=== PATIENT | female | born 1960 | race Caucasian/White ===

== ENCOUNTER 2017-01-11 04:06 | Inpatient (IN) | payer OTHER ==
[~2017-01-11] VITALS: Ht 157.5 cm; Wt 56.8 kg
[~2017-01-11 04:06] MED LIST: HYDR-971 PO; PROAIR HFA8.5 GM INH
--- NOTE | 2017-01-11 04:39 | PHYS DOC ---
Past Medical History Past Medical History: Arthritis, Asthma Additional Past Medical Histor: RA,chrones,osteoporosis, hep c+ Past Surgical History: Other Additional Past Surgical Histo: 17 x bowel resection. Alcohol Use: Occasionally Drug Use: None Adult General Chief Complaint Chief Complaint: SHORTNESS OF BREATH HPI HPI Patient is a 56 year old female who presents with chest pain and shortness of breath. Patient reports for the past 5 days she has been having cold-like symptoms, including cough, body aches, runny nose. Tonight approximately 0030 she had acute onset of "squeezing" discomfort in her left chest that is accompanied by shortness of breath. She also reports her left upper extremity is numb. No clear inciting or mitigating factors. She tried an albuterol treatment with no improvement. She did not take anything else for symptoms. Of note, patient says she has an allergy to aspirin. Review of Systems Review of Systems Constitutional: Denies fever or chills Eyes: Denies change in visual acuity or eye pain HENT: Rhinorrhea. Denies sore throat Respiratory: Shortness of breath, cough Cardiovascular: L chest pain GI: Nausea. Denies abdominal pain, vomiting, bloody stools or diarrhea : Denies dysuria or hematuria Musculoskeletal: Body aches Integument: Denies rash or skin lesions Neurologic: Denies headache, focal weakness Current Medications Current Medications Current Medications Medications (Trade) Dose Ordered Sig/Nidhi Start Time Stop Time Status Last Admin Dose Admin Acetaminophen (Tylenol) 650 mg PRN Q4HRS PRN 01/11/17 06:30 01/12/17 06:29 Acetaminophen/ Hydrocodone Bitart (Lortab 5/325) 2 tab 1X ONCE 01/11/17 05:15 01/11/17 05:16 DC 01/11/17 05:10 2 TAB Diphenhydramine HCl (Benadryl) 25 mg 1X ONCE 01/11/17 05:15 01/11/17 05:16 DC 01/11/17 05:10 25 MG Morphine Sulfate 2 mg PRN Q2HR PRN 01/11/17 06:30 01/12/17 06:29 01/11/17 06:37 2 MG Nitroglycerin (Nitrostat) 0.4 mg PRN Q5MIN PRN 01/11/17 06:30 01/12/17 06:29 Ondansetron HCl (Zofran) 4 mg PRN Q8HRS PRN 01/11/17 06:30 01/12/17 06:29 Allergies Allergies Allergies Coded Allergies Type Severity Reaction Last Updated Verified butorphanol Allergy Severe anaphalaxis 11/13/16 Yes meperidine Allergy Intermediate rash 11/13/16 Yes propoxyphene Allergy Intermediate hives 11/13/16 Yes aspirin Allergy Unknown rash 11/13/16 Yes Physical Exam Physical Exam Constitutional: Well developed, well nourished, no acute distress, non-toxic appearance HENT: Normocephalic, atraumatic, bilateral external ears normal Eyes: EOMI, conjunctiva normal, no discharge Neck: Normal range of motion, no stridor Cardiovascular: Heart rate normal, regular rhythm, no murmur Lungs & Thorax: Bilateral breath sounds clear to auscultation Abdomen: Bowel sounds normal, soft, non-distended, no TTP Skin: Warm, dry, no erythema, no rash Extremities: No obvious deformity, no edema Neurologic: Alert and oriented X 3, no gross deficits noted Psychologic: Anxious Current Patient Data Vital Signs Vital Signs Date Time Temp Pulse Resp B/P Pulse Ox O2 Delivery O2 Flow Rate FiO2 01/11/17 06:45 84 132/65 96 Room Air 01/11/17 04:08 97.7 20 97.7 Lab Values Laboratory Tests Test 01/11/17 05:15 White Blood Count 5.1x10^3/uL (4.0-11.0) Red Blood Count 3.64x10^6/uL (3.50-5.40) Hemoglobin 10.8g/dL (12.0-15.5) L Hematocrit 33.8% (36.0-47.0) L Mean Corpuscular Volume 93fL (79-100) Mean Corpuscular Hemoglobin 30pg (25-35) Mean Corpuscular Hemoglobin Concent 32g/dL (31-37) Red Cell Distribution Width 14.2% (11.5-14.5) Platelet Count 165x10^3/uL (140-400) Neutrophils (%) (Auto) 65% (31-73) Lymphocytes (%) (Auto) 24% (24-48) Monocytes (%) (Auto) 8% (0-9) Eosinophils (%) (Auto) 2% (0-3) Basophils (%) (Auto) 1% (0-3) Neutrophils # (Auto) 3.3x10^3uL (1.8-7.7) Lymphocytes # (Auto) 1.2x10^3/uL (1.0-4.8) Monocytes # (Auto) 0.4x10^3/uL (0.0-1.1) Eosinophils # (Auto) 0.1x10^3/uL (0.0-0.7) Basophils # (Auto) 0.0x10^3/uL (0.0-0.2) Sodium Level 143mmol/L (136-145) Potassium Level 3.8mmol/L (3.5-5.1) Chloride Level 106mmol/L (98-107) Carbon Dioxide Level 27mmol/L (21-32) Anion Gap 10 (6-14) Blood Urea Nitrogen 15mg/dL (7-20) Creatinine 0.6mg/dL (0.6-1.0) Estimated GFR (Cockcroft-Gault) 103.8 Glucose Level 104mg/dL (70-99) H Calcium Level 8.0mg/dL (8.5-10.1) L Troponin I Quantitative < 0.017ng/mL (0.000-0.055) Influenza Type A Antigen Negative (NEGATIVE) Influenza Type B Antigen Negative (NEGATIVE) Laboratory Tests 01/11/17 05:15 Laboratory Tests 01/11/17 05:15 EKG EKG EKG (my read): sinus rhythm, rate 79, normal axis, intervals wnl, nonspecific ST changes Radiology/Procedures Radiology/Procedures CXR (my read): No acute abnormality Course & Med Decision Making Course & Med Decision Making Pertinent Labs and Imaging studies reviewed. (See chart for details) Patient is 56-year-old female who presents with chest discomfort and shortness of breath. Suspect that she has had viral upper respiratory infection, unsure if this is related to acute onset chest discomfort or shortness of breath. In any case must consider ACS. Will obtain EKG, chest x-ray, labs to evaluate. An allergic to aspirin, so will not give that. Oral pain meds ordered, in addition to Zofran and Benadryl (benadryl per patient request as pain meds make her itchy ). EKG and chest x-ray results as above. Labs unremarkable; troponin within normal limits, however given timeframe this is not sufficient to rule out OH. Discussed results with patient, who continues to have chest discomfort and shortness of breath. Discussed with Dr. Gordon, will admit under her care for further evaluation and treatment. Dragon Disclaimer Dragon Disclaimer This electronic medical record was generated, in whole or in part, using a voice recognition dictation system. Departure Departure Impression: Primary Impression: Chest pain Additional Impression: SOB (shortness of breath) Disposition: ADMITTED INPATIENT Condition: STABLE Referrals: UNKNOWN PCP NAME (PCP) Problem Qualifiers TADEO ULLOA MD Jan 11, 2017 04:39
[2017-01-11] MEDS ORDERED: DIPHENHYDRAMINE HCL 25 MG CAPSULE PO ONE (05:15)
[2017-01-11] MEDS ORDERED: ONDANSETRON PF 4 MG/2 ML VIAL. IV ONE (05:15)
[2017-01-11] MEDS ORDERED: HYDROCODONE/APAP 5/325MG TABLET. PO ONE (05:15)
[2017-01-11 05:46] LABS: BASO % 1 % (0-3); EOS % 2 % (0-3); HEMATOCRIT 33.8 % (36.0-47.0); HEMOGLOBIN 10.8 g/dL (12.0-15.5); LYMPH # 1.2 x10^3/uL (1.0-4.8); LYMPH % 24 % (24-48); MEAN CORPUSCULAR HEMOGLOBIN 30 pg (25-35); MEAN CORPUSCULAR HGB CONC 32 g/dL (31-37); MEAN CORPUSCULAR VOLUME 93 fL (79-100); MONO % 8 % (0-9); NEUT % 65 % (31-73); OBC FLU VALID; PLATELET COUNT 165 x10^3/uL (140-400); RED BLOOD COUNT 3.64 x10^6/uL (3.50-5.40); RED CELL DISTRIBUTION WIDTH 14.2 % (11.5-14.5); WHITE BLOOD COUNT 5.1 x10^3/uL (4.0-11.0)
[2017-01-11 05:49] LABS: CREATININE 0.6 mg/dL (0.6-1.0); GFR 103.8; POTASSIUM 3.8 mmol/L (3.5-5.1)
[2017-01-11] MEDS ORDERED: MORPHINE SULFATE 2 MG/ML DISP.SYRIN. IV PRN (06:30)
[2017-01-11] MEDS ORDERED: ONDANSETRON PF 4 MG/2 ML VIAL. IV PRN (06:30)
[2017-01-11] MEDS ORDERED: ACETAMINOPHEN 325 MG TABLET. PO PRN (06:30)
[2017-01-11] MEDS ORDERED: NITROGLYCERIN SUBLINGUAL 0.4 MG BOTTLE OF 25. SL PRN (06:30)
--- NOTE | 2017-01-11 06:45 | EKG ---
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
--- NOTE | 2017-01-11 07:24 | RAD ---
Chest, 2 views, 01/11/2017: History: Chest pain, cough, shortness of breath The heart size and pulmonary vascularity are normal. No pulmonary infiltrates are seen. There is no evidence of pleural fluid. IMPRESSION: No acute cardiopulmonary abnormality is detected.
--- NOTE | 2017-01-11 07:49 | ACF ---
Admit Criteria Forms Admit Criteria Forms Admit Criteria Forms CARDIOLOGY GRG Clinical Indications for Admission to Inpatient Care ( Place 'X' for any and all applicable criteria): Hospital admission is needed for appropriate care of the patient because of ANY ONE of the following (1): [ ] I. Hemodynamic instability as indicated by ALL of the following (1)(2)(3) (4)(5) [ ]a) Vital signs or other findings not as expected for chronic patient condition or baseline [ ]b) Instability indicated by ANY ONE of the following: [ ]i) Hypotension [ ]ii) Symptomatic Tachycardia unresponsive to treatment ( e.g., analgesia, fluids, sedation as indicated) [ ]iii) Inadequate perfusion indicated by ANY ONE of the following: [ ] 1) Lactic acidosis (> 2 mmol/L) [ ] 2) New abnormal capillary refill (> 3 seconds) [ ] 3) Reduced urine output [ ] 4) New altered mental status [ ]iv) Orthostatic vital sign changes unresponsive to treatment (e.g., fluids) [ ]v) IV inotropic or vasopressor medication required to maintain adequate blood pressure or perfusion [ ] II. Severe heart failure as indicated by ANY ONE of the following(17)(18) [ ]a) Respiratory distress [ ]b) Hypotension [ ]c) Anasarca (refractory to outpatient therapy) [ ]d) Cardiac arrhythmias of immediate concern [ ]e) Myocardial ischemia [ ] III. Cardiac arrhythmias or findings of immediate concern indicated by ANY ONE of the following (19)(20): [ ] a) Heart rhythms that are inherently dangerous or unstable indicated by ANY ONE of the following (21)(22)(23): [ ] i) Resuscitated ventricular fibrillation or cardiac arrest [ ] ii) Ventricular escape rhythm [ ] iii) Sustained ventricular tachycardia (30 seconds or more of ventricular rhythm at greater than 100 beats per minute) [ ] iv) Nonsustained ventricular tachycardia and ANY ONE of the following: [ ] 1) Suspected cardiac ischemia as cause or consequence of ventricular tachycardia [ ] 2) In setting of acute myocarditis [ ] b) Unstable cardiac conduction defects indicated by ANY ONE of the following(23)(24)(25) [ ] i) Type II second-degree atrioventricular block [ ]ii) Third-degree atrioventricular block [ ]iii) New-onset left bundle branch block with suspected myocardial ischemia [ ]c) Any heart rhythm and ANY ONE of the following (21)(22)(26)(27) (28) [ ] i) Continuous long-term ECG monitoring needed (e.g., initiation of drug requiring monitoring for more than 24 hours) [ ] ii) Patient has automatic implanted cardioverter defibrillator that is repeatedly firing, malfunctioning, or in need of immediate adjustment of settings beyond the scope of ambulatory or observation care [ ]d) Heart rhythms of concern due to ANY ONE of the following: [ ] i) Hypotension [ ] ii) Respiratory distress [ ] iii) Association with other significant symptoms (e.g., bradycardia with syncope or ongoing dizziness, supraventricular tachycardia with chest pain (14)(15)(17) [ ] IV. Monitoring for cardiac contusion beyond the scope of observation care needed [A](30)(31)(32) [ ] V. Surgical or device complication (e.g., valve replacement complication , pacemaker dysfunction) (35)(41)(44)(45)(46) [ ] . Inpatient palliative care needed. [B](49) Also use Inpatient Palliative Care Criteria [ ] VII. Nonbacterial thrombotic (marantic) endocarditis (36)(43)(47)(48) [X] VIII. Cardiology condition, symptom, or finding for which emergency and observation care has failed or are not considered appropriate. [ ] IX. Acute valvular disease requiring inpatient as indicated by ANY ONE of the following (41) [ ]a) Acute valvular regurgitation (42) [ ]b) Noninfectious valvulitis (43) [ ]c) Obstructive valve thrombosis [ ]d) Paravalvular leak [ ]e) Other significant valvular disorder remaining after emergency or observation level of care (as appropriate) [ ]X. Pericardial disease requiring inpatient treatment as indicated by ANY ONE of the following (33)(34)(35)(36)(37) [ ]a) Suspected tamponade (38)(39)(40) [ ]b) Hemopericardium [ ]c) Other significant pericardial disorder remaining after emergency or observation level of care (as appropriate) [ ] XI. Cardiac ischemia beyond scope of emergency and observation care. [ ] XII. Hypertension requiring inpatient treatment as indicated by ANY ONE of the following (6)(7)(8) [ ]a) SBP greater than 220 mm Hg or DBP greater than 120 mmHg despite treatment [ ]b) SBP greater than 140 mm Hg or DBP greater than 100 mm Hg with evidence of acute end organ damage as indicated by ANY ONE of the following [ ] i) Encephalopathy [ ] ii) Acute renal failure as indicated by new onset of ANY ONE of the following (9)(10)(11)(12)(13) [ ]1) 3-fold rise in serum creatinine from baseline [ ]2) Serum creatinine greater than 4 mg/dL ( 354 micromoles/L) with acute rise greater than 0.5 mg/dL (44.2 micromoles/L) [ ]3) Reduction of more than 75% in estimated glomerular filtration rate from baseline [ ]4) Estimated glomerular filtration rate less than 35 mL/min/1.73m2 (0.59 mL/sec/1.73m2) in child up to 18 years of age [ ]5) Cessation of urine output indicated by ALL of the following [ ]A. Adequate volume status [ ]B. Inadequate urine output as indicated by ANY ONE of the following [ ]a. Urine output less than 0.3 mL/kg/hr for 24 hours [ ]b. Anuria (urine output less than 0.1 mL/kg/hr) for 12 hours [ ] iii) Aortic dissection [ ] iv) Myocardial Ischemia [ ] v) Left ventricular heart failure [ ]vi) Retinal Hemorrhage [ ]vii) Other significant finding [ ]c) Hypertension in child requiring inpatient treatment as indicated by ALL of the following(14)(15)(16) [ ] i) Outpatient treatment not effective, not available, or not appropriate [ ]ii) SBP or DBP greater than 95th percentile for age [ ]iii) Evidence of acute end organ damage as indicated by ANY ONE of the following [ ]1) Altered mental status [ ]2) Acute renal failure as indicated by new onset of ANY ONE of the following(9)(10)(11)(12)(13) [ ]A. 3-fold rise in serum creatinine from baseline [ ]B. Serum creatinine greater than 4 mg/dL (354 micromoles/L) with acute rise greater than 0.5 mg/dL (44.2 micromoles/L) [ ]C. Reduction of more than 75% in estimated glomerular filtration rate from baseline [ ]D. Estimated glomerular filtration rate less than 35 mL/min/1.73m2 (0.59 mL/sec/1.73m2) in child up to 18 years of age [ ]E. Cessation of urine output indicated by ALL of the following [ ]a. Adequate volume status [ ]b. Inadequate urine output as indicated by ANY ONE of the following [ ]i) Urine output less than 0.3 mL/kg/hr for 24 hours [ ]ii) Anuria ( urine output less than 0.1 mL/kg/hr) for 12 hours [ ]3) Severe headache [ ]4) Visual disturbance [ ]5) Retinal hemorrhage [ ]6) Other significant finding [ ]XIII. Complications of transplanted heart indicated by ANY ONE of the following(61): [ ]a) Acute graft rejection requiring inpatient management (eg, intravenous immunosuppression)(62)(63) [ ]b) Acute graft heart failure indicated by ANY ONE of the following(64): [ ]i) Hemodynamic instability [ ]ii) Cardiac arrhythmias of immediate concern [ ]iii) Pulmonary edema that is very severe (eg, mechanical ventilation needed, imminent or likely, need for 100% oxygen to keep oxygen saturation above 90%) [ ]iv) Pulmonary edema that is persistent as indicated by ALL of the following: [ ]1) New need for oxygen therapy to keep oxygen saturation above 90% (or increased FiO2 need from baseline) [ ]2) Has not improved sufficiently with emergency department or observation care IV diuretics or other heart failure treatments[E] [ ]v) Altered mental status that is severe or persistent [ ]vi) Increased creatinine (new on laboratory test) with reduction of more than 50% in estimated glomerular filtration rate from baseline [ ]vii) Progressively (ongoing) rising creatinine (known from past laboratory test) with reduction of more than 25% in estimated glomerular filtration rate from baseline [ ]viii) Acute renal failure [ ]ix) Acute peripheral ischemia (eg, examination shows pulseless, cool, mottled, or cyanotic extremity) [ ]x) Pulmonary artery catheter monitoring needed [ ]xi) Other sign or symptom of heart failure requiring inpatient treatment (ie, too severe or not responsive to outpatient and observation care treatment) [ ]c) Infection requiring inpatient management (eg, Hemodynamic instability, need for intravenous antimicrobial treatment)(66)(67)(68)(69)(70) [ ]d) Cardiac allograft vasculopathy requiring inpatient management ( eg evidence of cardiac ischemia)(71) [ ]e) Other complication of transplanted heart (eg, stroke, severe pulmonary hypertension, severe valvular dysfunction) requiring inpatient management(72) The original [facility] content created by [facility] has been revised. The portions of the content which have been revised are identified through the use of italic text or in bold, and [facility] has neither reviewed nor approved the modified material. All other unmodified content is copyright [facility]. Please see references footnoted in the original [facility] edition 2016 SHANA KO Jan 11, 2017 07:49
[2017-01-11 08:25] VITALS: BP 80/47
--- NOTE | 2017-01-11 09:30 | PDOC2 ---
CARDIAC CONSULT DATE OF CONSULT Date of Consult DATE: 01/11/17 TIME: 09:19 REASON FOR CONSULT Reason for Consult: chest pain/ shortness of breath REFERRING PHYSICIAN Referring Physician: Dr. Cathi Gordon SOURCE Source: Chart review, Patient HISTORY OF PRESENT ILLNESS HISTORY OF PRESENT ILLNESS 56 year old with one week history of productive cough with yellow sputum, body aches and pain and rhinorrhea. Brief episode of left breast pain described as "pulsating" yesterday without radiation and without associated symptoms. Now also with dyspnea. EKG = ? as program can not be opened. Initial troponin not consistent with AMI. Reason for Visit: chest pain PAST MEDICAL HISTORY Cardiovascular: No pertinent hx Pulmonary: Asthma CENTRAL NERVOUS SYSTEM: Other (none) GI: Inflam bowel disease (crohn's with multiple surgical resections) Heme/Onc: No pertinent hx Hepatobiliary: Hep A/B/C (hepatitis C) Musculoskeletal: Osteoarthritis Rheumatologic: Rheumatoid arthritis Infectious disease: No pertinent hx ENT: No pertinent hx Renal/: No pertinent hx Endocrine: No pertinent hx PAST SURGICAL HISTORY Past Surgical History: Hysterectomy, Colon Resection (multiple) FAMILY HISTORY Family History: Coronary Artery Disease (mother diagnosed in her 70s), Other ( father with heart transplant - diagnosis unknown) SOCIAL HISTORY Smoke: No ALCOHOL: none Drugs: None Lives: with Family CURRENT MEDICATIONS CURRENT MEDICATIONS Current Medications Medications (Trade) Dose Ordered Sig/Nidhi Route PRN Reason Start Time Stop Time Status Last Admin Dose Admin Acetaminophen/ Hydrocodone Bitart (Lortab 5/325) 2 tab 1X ONCE PO 01/11/17 05:15 01/11/17 05:16 DC 01/11/17 05:10 Ondansetron HCl (Zofran) 4 mg 1X ONCE IV 01/11/17 05:15 01/11/17 05:16 DC 01/11/17 05:10 Diphenhydramine HCl (Benadryl) 25 mg 1X ONCE PO 01/11/17 05:15 01/11/17 05:16 DC 01/11/17 05:10 Morphine Sulfate 2 mg PRN Q2HR PRN IV PAIN 01/11/17 06:30 01/12/17 06:29 01/11/17 06:37 ALLERGIES ALLERGIES: Coded Allergies: butorphanol (Verified Allergy, Severe, anaphalaxis, 11/13/16) TOLERATES HYDROCODONE IF TAKES BENADRYL meperidine (Verified Allergy, Intermediate, rash, 11/13/16) propoxyphene (Verified Allergy, Intermediate, hives, 11/13/16) aspirin (Verified Allergy, Unknown, rash, 11/13/16) ROS Review of System 14 point review with pertinent positives in HPI PHYSICAL EXAM General: Alert, Oriented X3, Cooperative HEENT: Atraumatic, PERRLA Lungs: Other (severely diminished posteriorly) Heart: Regular rate, Normal S1, Normal S2, No murmurs, Other (no carotid bruits ; tele: SR) Abdomen: Normal bowel sounds, Soft Extremities: No clubbing, No cyanosis, No edema Skin: No rashes Neuro: Normal speech, Sensation intact Psych/Mental Status: Mental status NL, Mood NL MUSCULOSKELETAL: No deformity VITALS VITALS Vital Signs Date Time Temp Pulse Resp B/P Pulse Ox O2 Delivery O2 Flow Rate FiO2 01/11/17 07:45 87 18 132/65 96 Room Air 01/11/17 04:08 97.7 97.7 LABS Lab: Laboratory Tests Test 01/11/17 05:15 White Blood Count 5.1x10^3/uL (4.0-11.0) Red Blood Count 3.64x10^6/uL (3.50-5.40) Hemoglobin 10.8g/dL (12.0-15.5) Hematocrit 33.8% (36.0-47.0) Mean Corpuscular Volume 93fL (79-100) Mean Corpuscular Hemoglobin 30pg (25-35) Mean Corpuscular Hemoglobin Concent 32g/dL (31-37) Red Cell Distribution Width 14.2% (11.5-14.5) Platelet Count 165x10^3/uL (140-400) Neutrophils (%) (Auto) 65% (31-73) Lymphocytes (%) (Auto) 24% (24-48) Monocytes (%) (Auto) 8% (0-9) Eosinophils (%) (Auto) 2% (0-3) Basophils (%) (Auto) 1% (0-3) Neutrophils # (Auto) 3.3x10^3uL (1.8-7.7) Lymphocytes # (Auto) 1.2x10^3/uL (1.0-4.8) Monocytes # (Auto) 0.4x10^3/uL (0.0-1.1) Eosinophils # (Auto) 0.1x10^3/uL (0.0-0.7) Basophils # (Auto) 0.0x10^3/uL (0.0-0.2) Sodium Level 143mmol/L (136-145) Potassium Level 3.8mmol/L (3.5-5.1) Chloride Level 106mmol/L (98-107) Carbon Dioxide Level 27mmol/L (21-32) Anion Gap 10 (6-14) Blood Urea Nitrogen 15mg/dL (7-20) Creatinine 0.6mg/dL (0.6-1.0) Estimated GFR (Cockcroft-Gault) 103.8 Glucose Level 104mg/dL (70-99) Calcium Level 8.0mg/dL (8.5-10.1) Troponin I Quantitative < 0.017ng/mL (0.000-0.055) Influenza Type A Antigen Negative (NEGATIVE) Influenza Type B Antigen Negative (NEGATIVE) IMAGES IMAGES CXR - no acute process EKG EKG can not be reviewed ASSESSMENT/PLAN ASSESSMENT/PLAN 1. left breast pain atypical and likely musculoskeletal in etiology given 5 day history of cough - influenza neg initial troponin not consistent with AMI can not open ekg to review given family history - echo to evaluate for WMA 2. suspect asthma exacerbation / URI consider pulmonary evaluation 3. anemia ? chronic disease may also be contributing etiology for dyspnea defer to primary service Problems: SARAH AGUILERA APRN Jan 11, 2017 09:30
[2017-01-11] MEDS ORDERED: FLUT1DIS3 IH (10:44)
[2017-01-11] MEDS ORDERED: INFLUENZA VAX SCREEN BY RX. MC PRN (10:45)
[2017-01-11] MEDS ORDERED: ZOLP10TA PO (10:46)
--- NOTE | 2017-01-11 10:59 | CARD ---
APPROVED REPORT EXAM: Two-dimensional and M-mode echocardiogram with Doppler and color Doppler. Other Information Quality : Average Rhythm : NSR INDICATION Chest Pain 2D DIMENSIONS RVDd3.2 (2.9-3.5cm)Left Atrium(2D)3.2 (1.6-4.0cm) IVSd0.7 (0.7-1.1cm)Aortic Root(2D)2.6 (2.0-3.7cm) LVDd3.7 (3.9-5.9cm)LVOT Diameter1.9 (1.8-2.4cm) PWd0.7 (0.7-1.1cm)LVDs2.4 (2.5-4.0cm) FS (%) 36.4 %SV38.9 ml LVEF(%)67.0 (>50%) Aortic Valve AoV Peak Renny.110.0cm/sAoV VTI20.0cm AO Peak GR.4.8mmHgLVOT Peak Renny.95.4cm/s LVOT VTI 17.65cmAO Mean GR.3mmHg KALANI (VMAX)2.81qr3JIA (VTI)2.42cm2 Mitral Valve MV E Vvnylfmd46.0cm/sMV DECEL RKMH145pl MV A Oywoqwgv97.9cm/sMV E Mean Gr.2mmHg MV [id number]/A Ratio1.1 MV A [id number] (PHT)3.81cm2 TDI E/Lateral E'4.6E/Medial E'5.8 Pulmonary Valve PV Peak Terlwzws678.4cm/sPV Peak Grad.6mmHg RVOT VTI24.0cm Tricuspid Valve TR P. Rwimgxol784fp/sRAP [id number] TR Peak Gr.55huOrAYIZ66bpOu LEFT VENTRICLE The left ventricle is normal size. There is normal left ventricular wall thickness. Left ventricle sy stolic function is normal. The Ejection Fraction is 65-70%. There is normal LV segmental wall motion. The left ventricular diastolic function and filling is normal for age. RIGHT VENTRICLE The right ventricle is normal size. The right ventricular systolic function is normal. ATRIA The left atrium size is normal. The right atrium size is normal. The interatrial septum is intact wit h no evidence for an atrial septal defect or patent foramen ovale as noted on 2-D or Doppler imaging. AORTIC VALVE The aortic valve is normal in structure and function. The aortic valve is trileaflet. Doppler and Col or Flow revealed no significant aortic regurgitation. There is no significant aortic valvular stenosi s. MITRAL VALVE The mitral valve is normal in structure and function. There is no mitral valve stenosis. Doppler and Color Flow revealed no mitral valve regurgitation noted. TRICUSPID VALVE The tricuspid valve is normal in structure. Doppler and Color Flow revealed mild tricuspid regurgitat ion. The PA pressure was estimated at 28 mmHg. There is no tricuspid valve stenosis. PULMONIC VALVE The pulmonic valve is not well visualized. Doppler and Color Flow revealed no pulmonic valvular regur gitation. There is no pulmonic valvular stenosis. GREAT VESSELS The aortic root is normal in size. The IVC is normal in size and collapses >50% with inspiration. PERICARDIAL EFFUSION There is no evidence of significant pericardial effusion. Critical Notification Critical Value: No <Conclusion> Left ventricle systolic function is normal. The Ejection Fraction is 65-70%. There is normal LV segmental wall motion. Mild tricuspid regurgitation. The PA pressure was estimated at 28 mmHg. There is no evidence of significant pericardial effusion.
[2017-01-11 11:10] VITALS: BP 86/46
[2017-01-11] MEDS ORDERED: IV NORMAL SALINE 500ML BAG 500 ML IV ONE (11:30)
[2017-01-11] MEDS ORDERED: FLU VACC QUAD 2016-17 (36MOS+)/PF 0.5 ML SYRINGE. VAX IM ONE (12:00)
[2017-01-11] MEDS ORDERED: PRED-220 PO (14:06)
[2017-01-11 14:15] VITALS: BP 92/54
[2017-01-11] MEDS ORDERED: PREDNISONE 20 MG TABLET PO ONE (15:00)
--- NOTE | 2017-01-12 04:33 | SSS ---
ADMIT DATE: 01/11/2017 CHIEF COMPLAINT: Chest pain. HISTORY OF PRESENT ILLNESS: The patient is a 56-year-old woman with a history of Crohn's as well as asthma who presented to the Emergency Room with chest pain with deep breathing. She relates that about 5 days ago, she started having pain in the right side of her neck, which day by day seemed to be getting worse, not only in intensity, but also spreading to the contralateral side and down her shoulders. Yesterday, however, she started feeling more chest pain anteriorly. At the same time, she became very malaised, achy, had a stuffy nose , mild sore throat. No significant cough, however, no diarrhea or constipation. She has not had a fever in the entire time. She felt like she was coming down with the flu and therefore rested at home; however, symptoms did not improve and she presented to the hospital. She was evaluated for influenza; both A and B serologies were negative. Nevertheless, she was admitted for chest pain rule out with a suspicion for viral syndrome. PAST MEDICAL HISTORY: Crohn's disease, currently off any medications. States she has had 17 surgeries and bowel resections in the past, rheumatoid arthritis, currently off any immunosuppressants as well, asthma, question hepatitis C, osteoarthritis. FAMILY HISTORY: CAD on paternal side with father having heart disease, 2 of her paternal uncles with heart transplant. SOCIAL HISTORY: Lives with her , works part-time in the [employer] business and no toxic habits. ALLERGIES: ASPIRIN, MEPERIDINE, PROPOXYPHENE AND BUTORPHANOL. MEDICATIONS: MAR reconciled with home medications. REVIEW OF SYSTEMS: The patient feels much better today, still aching her back and pain with deep breathing. Denies any fevers. Rest of organ system review is essentially negative. PHYSICAL EXAMINATION: VITAL SIGNS: From today show a blood pressure of 86/46, heart rate of 77. She is afebrile. GENERAL: This is a 56-year-old well-nourished woman, alert and oriented, in no acute distress. HEENT: Shows no scleral icterus. Oral mucosa is pink and moist. NECK: Supple, without any lymphadenopathy. LUNGS: Clear. Deep breathing causes cough. HEART: Has regular rate and rhythm. ABDOMEN: Positive bowel sounds, soft, nontender. Multiple surgical scars. EXTREMITIES: Show no edema. SKIN: Warm, soft and dry. LABORATORY DATA: CBC from today shows a WBC of 5.1, hemoglobin 10.8, MCV of 93, platelets of 135. Chemistries with a BUN and creatinine of 15 and 0.6, normal electrolytes. Calcium at 8.0. Troponins negative x 2. IMAGING STUDIES: Chest x-ray from this morning shows no acute cardiopulmonary abnormality. Echocardiogram shows normal LV function with an EF of 65-70%, PA pressure 28, mild tricuspid regurg. ASSESSMENT AND PLAN: The patient is a 56-year-old woman with multiple underlying autoimmune diseases who presents with what appears to be a viral syndrome with pleuritis. She has not had any fevers or any other focal symptoms. We will treat this symptomatically. Because of her history of gastrointestinal bleed with Crohn's, she has been told to avoid any nonsteroidal anti-inflammatory drugs. We will give her a trial of steroids, which she actually has tolerated with good results in the past. She will continue on her nebulizers, both Flovent as well as albuterol at home. Advised her to stay home. Hypotension is apparently relatively normal for her. In the ER, blood pressures were measured higher than here, but the patient states that her typical blood pressure actually is in the 80s-90s chronically. No evidence of coronary artery disease was found on her workup including serial enzymes, EKGs as well as echo. No further workup indicated. The patient is deemed ready for discharge today, but was advised to stay at home for the rest of the week and rest. DISCHARGE DATE: 01/11/2017 DISCHARGE DISPOSITION: To home. DISCHARGE CONDITION: Improved. DISCHARGE DIAGNOSES: Viral syndrome, asthma exacerbation, pleuritis. MEDICATIONS: Please refer to MAR. INSTRUCTIONS: The patient will follow up with PCP LALY. She has tried to establish a new followup with GI here in [place], [place]. KOBY RECIO MD DR: BRANDON/nts JOB#: [id number] / [id number] LOGAN
== END 2017-01-11 15:54 | disposition home or self-care (01) | DRG 202 ==
LOC: ER 04:06 → 5 NORTH 06:21
PROVIDERS: ADMIT Internal Medicine Hematology & Oncology; ATTEND Internal Medicine Hematology & Oncology
DX: J45.901 Unspecified asthma with (acute) exacerbation (principal); K50.90 Crohn's disease, unspecified, without complications; B34.9 Viral infection, unspecified; D64.9 Anemia, unspecified; M06.9 Rheumatoid arthritis, unspecified; M81.0 Age-related osteoporosis without current pathological fracture; R09.1 Pleurisy; Z82.49 Family history of ischemic heart disease and other diseases of the circulatory system; Z88.6 Allergy status to analgesic agent; Z88.8 Allergy status to other drugs, medicaments and biological substances
CPT/HCPCS: 36415; 71020; 80048; 84484; 85027; 87804; 93005; 93306; 96374; 96375; J2270; J2405; J7040; J7512; Q0163; 99285-25

== ENCOUNTER 2017-05-25 22:16 | Inpatient (IN) | payer OTHER ==
[~2017-05-25] VITALS: Ht 157.5 cm; Wt 52.6 kg
[~2017-05-25 22:16] MED LIST changes: +FLUT1DIS3 IH; +PRED-220 PO; +ZOLP10TA PO
[2017-05-25] MEDS ORDERED: diphenhydrAMINE 50 MG/ML VIAL ONE (22:39)
[2017-05-25] MEDS ORDERED: ONDANSETRON PF 4 MG/2 ML VIAL. ONE (22:39)
[2017-05-25] MEDS ORDERED: MORPHINE SULFATE 10 MG/ML VIAL. ONE (22:40)
[2017-05-25] MEDS ORDERED: MORPHINE SULFATE 10 MG/ML VIAL. IV ONE (22:45)
[2017-05-25] MEDS ORDERED: diphenhydrAMINE 50 MG/ML VIAL IVP ONE (22:45)
[2017-05-25] MEDS ORDERED: ONDANSETRON PF 4 MG/2 ML VIAL. IV ONE (23:00)
[2017-05-25] MEDS ORDERED: ACETAMINOPHEN 325 MG TABLET. PO PRN (23:45)
[2017-05-25] MEDS ORDERED: ONDANSETRON PF 4 MG/2 ML VIAL. IV PRN (23:45)
[2017-05-25] MEDS: MORPHINE SULFATE 4 MG/ML DISP.SYRIN. IV PRN (23:56)
[2017-05-25] MEDS: MORPHINE SULFATE 4 MG/ML DISP.SYRIN. IV/SQ PRN (23:56)
[2017-05-26] VITALS (8 sets, daily range): BP systolic 87–141; BP diastolic 45–87
--- NOTE | 2017-05-26 00:07 | PHYS DOC ---
Past Medical History Past Medical History: Arthritis, Asthma Additional Past Medical Histor: RA,chrones,osteoporosis, hep c+ Past Surgical History: Appendectomy, , Hysterectomy, Other Additional Past Surgical Histo: 17 x bowel resection. Alcohol Use: Occasionally Drug Use: None Adult General Chief Complaint Chief Complaint: MECHANICAL FALL HPI HPI Patient is a 57 year old female who presents with pelvic pain after a fall. 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 She says she lost her balance & fell onto her right side, now with right hip & left groin pain. She denies head trauma or loss of consciousness, no other injuries. Was unable to bear weight after the injury. Arrives via EMS with persistent pain after fentanyl administration. PCP is Dr. Ayers. Review of Systems Review of Systems Constitutional: Well developed, well nourished, tearful HENT: Normocephalic, atraumatic, bilateral external ears normal, oropharynx moist, nose normal. Eyes: PERRLA, EOMI, conjunctiva normal, no discharge. Neck: supple, no stridor. no midline c-spine tenderness Cardiovascular: RRR, no murmurs, no edema. Lungs & Thorax: LCTAB, no wheezing, no respiratory distress. Abdomen: soft, nontender, nondistended. Skin: Warm, dry, no erythema, no rash. Back: No step offs Extremities: generalized tenderness to R hip without swelling/deformity. L groin/medial pelvic tenderness. no knee or ankle tenderness. unable to demonstrate hip ROM bilaterally due to pain. dp/pt 2+ bilaterally, sensation intact to feet, any foot movement causes severe L groin pain. Neurologic: Alert and oriented X 3, no focal deficits noted. Psychologic: Affect normal, judgement normal, mood normal. Current Medications Current Medications Current Medications Medications (Trade) Dose Ordered Sig/Nidhi Start Time Stop Time Status Last Admin Dose Admin Diphenhydramine HCl (Benadryl) 25 mg 1X ONCE 05/25/17 22:45 05/25/17 22:49 DC 05/25/17 22:48 25 MG Morphine Sulfate 10 mg STK-MED ONCE 05/25/17 22:40 05/25/17 22:41 DC Ondansetron HCl (Zofran) 4 mg STK-MED ONCE 05/25/17 22:39 05/25/17 22:40 DC Allergies Allergies Allergies Coded Allergies Type Severity Reaction Last Updated Verified butorphanol Allergy Severe anaphalaxis 11/13/16 Yes meperidine Allergy Intermediate rash 11/13/16 Yes propoxyphene Allergy Intermediate hives 11/13/16 Yes aspirin Allergy Unknown rash 11/13/16 Yes Physical Exam Physical Exam Constitutional: Well developed, well nourished, no acute distress, non-toxic appearance. HENT: Normocephalic, atraumatic, bilateral external ears normal, oropharynx moist, nose normal. Eyes: PERRLA, EOMI, conjunctiva normal, no discharge. Neck: supple, no stridor. Cardiovascular: RRR, no murmurs, no edema. Lungs & Thorax: LCTAB, no wheezing, no respiratory distress. Abdomen: soft, nontender, nondistended. Skin: Warm, dry, no erythema, no rash. Back: No tenderness. Extremities: No tenderness, no edema. Neurologic: Alert and oriented X 3, no focal deficits noted. Psychologic: Affect normal, judgement normal, mood normal. Current Patient Data Vital Signs Vital Signs Date Time Temp Pulse Resp B/P (MAP) Pulse Ox O2 Delivery O2 Flow Rate FiO2 05/25/17 22:20 99.0 88 18 126/58 (80) 95 Room Air 99.0 Lab Values Laboratory Tests Test 05/25/17 23:25 White Blood Count 9.8 x10^3/uL (4.0-11.0) Red Blood Count 3.80 x10^6/uL (3.50-5.40) Hemoglobin 11.6 g/dL (12.0-15.5) L Hematocrit 35.3 % (36.0-47.0) L Mean Corpuscular Volume 93 fL (79-100) Mean Corpuscular Hemoglobin 31 pg (25-35) Mean Corpuscular Hemoglobin Concent 33 g/dL (31-37) Red Cell Distribution Width 14.2 % (11.5-14.5) Platelet Count 211 x10^3/uL (140-400) Neutrophils (%) (Auto) 84 % (31-73) H Lymphocytes (%) (Auto) 13 % (24-48) L Monocytes (%) (Auto) 3 % (0-9) Eosinophils (%) (Auto) 1 % (0-3) Basophils (%) (Auto) 1 % (0-3) Neutrophils # (Auto) 8.2 x10^3uL (1.8-7.7) H Lymphocytes # (Auto) 1.2 x10^3/uL (1.0-4.8) Monocytes # (Auto) 0.2 x10^3/uL (0.0-1.1) Eosinophils # (Auto) 0.1 x10^3/uL (0.0-0.7) Basophils # (Auto) 0.1 x10^3/uL (0.0-0.2) Sodium Level 140 mmol/L (136-145) Potassium Level 3.3 mmol/L (3.5-5.1) L Chloride Level 105 mmol/L (98-107) Carbon Dioxide Level 27 mmol/L (21-32) Anion Gap 8 (6-14) Blood Urea Nitrogen 12 mg/dL (7-20) Creatinine 0.7 mg/dL (0.6-1.0) Estimated GFR (Cockcroft-Gault) 86.6 Glucose Level 95 mg/dL (70-99) Calcium Level 8.7 mg/dL (8.5-10.1) Laboratory Tests 05/25/17 23:25 Laboratory Tests 05/25/17 23:25 EKG EKG [] Radiology/Procedures Radiology/Procedures XR R hip & pelvis: left superior & inferior pubic ramus fracture, minimally displaced, no hip fracture or dislocation.[] Course & Med Decision Making Course & Med Decision Making Pertinent Labs and Imaging studies reviewed. (See chart for details) The patient presents with hip & pelvic pain after a fall. Gave pain medication. XR shows superior & inferior pubic ramus fractures. Discussed with Dr. Piedra who will consult. The patient has ongoing severe pain. Discussed with Dr. Gordon who agrees to admit to inpatient status. The patient is admitted in stable condition. [] Dragon Disclaimer Dragon Disclaimer This electronic medical record was generated, in whole or in part, using a voice recognition dictation system. Departure Departure Impression: Primary Impression: Pelvic fracture Disposition: ADMITTED INPATIENT Condition: STABLE Referrals: UNKNOWN PCP NAME (PCP) BONNIE BHATIA MD May 26, 2017 00:07
[2017-05-26 00:34] LABS: BASO # 0.1 x10^3/uL (0.0-0.2); BASO % 1 % (0-3); EOS % 1 % (0-3); HEMATOCRIT 35.3 % (36.0-47.0); HEMOGLOBIN 11.6 g/dL (12.0-15.5); LYMPH # 1.2 x10^3/uL (1.0-4.8); LYMPH % 13 % (24-48); MEAN CORPUSCULAR HEMOGLOBIN 31 pg (25-35); MEAN CORPUSCULAR HGB CONC 33 g/dL (31-37); MEAN CORPUSCULAR VOLUME 93 fL (79-100); MONO % 3 % (0-9); NEUT % 84 % (31-73); PLATELET COUNT 211 x10^3/uL (140-400); RED CELL DISTRIBUTION WIDTH 14.2 % (11.5-14.5); WHITE BLOOD COUNT 9.8 x10^3/uL (4.0-11.0)
[2017-05-26] MEDS: MORPHINE SULFATE 4 MG/ML DISP.SYRIN. IV/SQ PRN (00:40)
[2017-05-26 00:55] LABS: CALCIUM 8.7 mg/dL (8.5-10.1); CREATININE 0.7 mg/dL (0.6-1.0); GFR 86.6; POTASSIUM 3.3 mmol/L (3.5-5.1)
[2017-05-26] MEDS ORDERED: oxyCODONE/APAP 5/325 1 TAB TABLET PO PRN (01:30)
[2017-05-26] MEDS: diphenhydrAMINE HCL 25 MG CAPSULE PO PRN ×3 (01:51→22:27)
[2017-05-26] MEDS ORDERED: POTASSIUM CHLORIDE 20 MEQ/15 ML ORAL LIQUID. PO ONE (02:30)
--- NOTE | 2017-05-26 02:34 | ACF ---
Admission Forms Criteria MUSCULOSKELETAL DISEASE GRG Clinical Indications for Admission to Inpatient Care (Place 'X' for any and all applicable criteria): Hospital admission is needed for appropriate care of the patient because of 1 or more of the following: [X]I. Fracture, dislocation, or other musculoskeletal injury requiring inpatient care(medical) as indicated by 1 or more of the following(4)(5)(6)(7) [ ]a) Vertebral fracture requiring observation for instability or neurologic compromise (8) [ ]b) Compartment syndrome (proven or cannot be ruled out during observation level of care) (9) [ ]c) Limb-threatening injury [ ]d) Major injury requiring inpatient stabilization such as traction initiation or external fixation before internal fixation or closure of complex or open fracture [X]e) Major injury requiring inpatient treatment after emergency or observation level care (as appropriate) [ ]f) Severe pain requiring acute inpatient management [ ]g) Injury with suspicion of abuse or neglect (eg., child, dependent elderly) [ ]II. Newly diagnosed or suspected bone, joint, or orthopedic device infection (e.g., osteomyelitis, septic arthritis) needing 1 or more of the following(1)(2)(3) [ ]a) IV antibiotics that cannot be initiated in other than inpatient setting (e.g., patient too unstable or home infusion not available) [ ]b) Device removal or replacement [ ]c) Bone or soft tissue debridement [ ]d) Joint drainage (drain placement or repetitive aspirations) [ ]III. Severe rheumatologic disease (e.g., systemic lupus erythematosus, rheumatoid arthritis) with complications or comorbidities (Also use Optimal Recovery Care Criteria or General Recovery Criteria as appropriate on the basis of predominant condition), including 1 or more of the following( 10)(11)(12)(13) [ ]a) Severe infection (e.g., TOOL PROGRAMMER infection, sepsis) (14) [ ]b) Respiratory complications, including 1 or more of the following : [ ]i) Pleural effusion with respiratory compromise [ ]ii) Pulmonary hypertension with congestive failure [ ]iii) Respiratory failure [ ]iv) Pulmonary hemorrhage (15) [ ]c) Hematologic disease, including 1 or more of the following: [ ]i) Coagulopathy with bleeding [ ]ii) Thrombosis with hypercoagulable state [ ]iii) Thrombotic thrombocytopenic purpura [ ]d) Cerebritis with seizures, psychosis, or other severe abnormalities [ ]e) Vertebral destruction with monitoring needed for cervical myelopathy& possible respiratory compromise [ ]f) Exacerbation that requires inpatient treatment (e.g., intravenous immunosuppression) (16) [ ]g) Acute renal failure [ ]h) Cerebritis with seizures, psychosis, Altered mental status, or other neurologic abnormalities [ ]i) Pericardial effusion with tamponade [ ]j) Vertebral destruction, with monitoring needed for cervical myelopathy and possible respiratory compromise [ ]IV. Severe vasculitis with complications or comorbidities (Also use Optimal Recovery Care Criteria General Recovery Criteria as appropriate on the basis of predominant condition), including 1 or more of the following(11)(12)(17)(18)(19)(20) [ ]a) Exacerbation that requires inpatient treatment (e.g., intravenous immunosuppression) (19)(21) [ ]b) Pulmonary hemorrhage (15) [ ]c) TOOL PROGRAMMER vasculitis with seizures, psychosis, Altered mental status that is severe or persistent, or other severe abnormalities (22) [ ]d) Cerebral infarction [ ]e) Gastrointestinal ischemia [ ]f) Gangrene or threatened amputation [ ]g) Renal failure (16) [ ]h) Other significant complications of vasculitis ( eg., tissue or organ ischemia, organ dysfunction ) [ ]V. Severe myopathy as indicated by 1 or more of the following (28)(29) [ ]a) New onset of airway compromise or inability to swallow [ ]b) Respiratory deterioration with observation needed for impending respiratory failure [ ]c) Exacerbation that requires inpatient treatment (e.g., intravenous immunosuppression) [ ]. Severe crystal gout (arthropathy) indicated by 1 or more of the following (23)(24) [ ]a) Severe pain requiring acute inpatient management [ ]b) Exacerbation that requires inpatient treatment (e.g., intravenous treatment) [ ]VII.Rhabdomyolysis and 1 or more of the following (25)(26)(27) [ ]a) Acute renal failure [ ]b) Need for intravenous hydration after emergency or observation level care (as appropriate) [ ]c) Inability to maintain oral hydration [ ]d) Change in mental status [ ]e) Electrolyte abnormality that remains after emergency or observation level care (as appropriate) [ ]VIII Post amputation complication, as indicated by ANY ONE of the following [ ]a) Infection [ ]b) Dehiscence [ ]c) Myodesis failure [ ]IX. Severe pain requiring acute inpatient management due to musculoskeletal condition [ ]X. Musculoskeletal Disease and ALL of the following: [ ]a) Symptom or finding for which emergency and observation care have failed or are not considered appropriate (Use General Criteria: Observation Care as appropriate) [ ]b) Presence of ANY ONE of the following [ ]i) A General Admission Criteria [ ]ii) A Pediatric General Admission Criteria The original [facility] [employer] content created by [facility] has been revised. The portions of the content which have been revised are identified through the use of italic text or in bold, and [facility] has neither reviewed nor approved the modified material. All other unmodified content is copyright [facility]. Please see references footnoted in the original [facility] edition 2016 Admission Criteria Met?: Yes NIKHIL BAIG May 26, 2017 02:34
[2017-05-26] MEDS: MORPHINE SULFATE 4 MG/ML DISP.SYRIN. IV PRN (02:39)
[2017-05-26] MEDS: HYDROmorphone 2 MG/ML VIAL IV PRN ×4 (04:49→18:06)
[2017-05-26] MEDS: IV NORMAL SALINE 1000ML BAG 1,000 ML IV SCH ×2 (04:55→14:54)
--- NOTE | 2017-05-26 07:24 | RAD ---
AP view of the pelvis and two-view study of the right hip Clinical indications: Fall today. Pain. 2 view study of the right hip: No acute fracture or dislocation or osteolytic process is seen. No significant arthritic change is evident. Pelvis: There is a transverse fracture of the body of the left pubic bone. There is a fracture of the left superior pubic ramus at the junction with the left pubic bone. No diastases of the symphysis pubis is seen. No diastases of either SI joint is seen. No osteolytic process is seen. The left hip joint is unremarkable. IMPRESSION: Fractures of the left pubic bone and the left superior pubic ramus.
--- NOTE | 2017-05-26 08:32 | PDOC1 ---
History and Physical Date of Admission Date of Admission DATE: 05/26/17 TIME: 08:32 Identification/Chief Complaint Chief Complaint pelvis pain Problems: Source Source: Chart review, Patient History of Present Illness History of Present Illness Ms Hurtado is a 57 year old female admit with severe back and groin pain. She was seen in the ER, eval for acute pelvic pain after a fall. She fell while carrying a box and fell on her right hip, now pain in the left groin, she cannot move the left leg, and had severe back pain,. Mult IV doses last night she thought "1mg Dialaudid doesn't event touch the pain " now pain better with 2mg IV, I discussed trying to back off. has large amt weight loss 1 year due to crohns disease asthma controlled on current, . PCP is Dr. Ayers. Past Medical History Cardiovascular: No pertinent hx Pulmonary: Asthma CENTRAL NERVOUS SYSTEM: Other GI: Inflam bowel disease Heme/Onc: No pertinent hx Hepatobiliary: Hep A/B/C Musculoskeletal: Osteoarthritis Rheumatologic: Rheumatoid arthritis Infectious disease: No pertinent hx Renal/: No pertinent hx Endocrine: No pertinent hx Past Surgical History Past Surgical History: Hysterectomy, Colon Resection Family History Family History: Coronary Artery Disease, Other Social History Smoke: No ALCOHOL: none Drugs: None Current Medications Current Medications Current Medications Morphine Sulfate 5 mg 1X ONCE IV Last administered on 05/25/17 22:48; Start 05/25/17 at 22:45; Stop 05/25/17 at 22:49; Status DC Ondansetron HCl (Zofran) 4 mg 1X ONCE IV Last administered on 05/25/17 22:49 ; Start 05/25/17 at 23:00; Stop 05/25/17 at 23:01; Status DC Morphine Sulfate 4 mg PRN Q15MIN PRN IV/SQ PAIN GREATER THAN 3/10 Last administered on 05/26/17 00:40; Start 05/25/17 at 23:00; Stop 05/26/17 at 22:59 Ondansetron HCl (Zofran) 4 mg STK-MED ONCE .ROUTE ; Start 05/25/17 at 22:39; Stop 05/25/17 at 22:40; Status DC Diphenhydramine HCl (Benadryl) 50 mg STK-MED ONCE .ROUTE ; Start 05/25/17 at 22: 39; Stop 05/25/17 at 22:40; Status DC Morphine Sulfate 10 mg STK-MED ONCE .ROUTE ; Start 05/25/17 at 22:40; Stop 05/25 at 22:41; Status DC Diphenhydramine HCl (Benadryl) 25 mg 1X ONCE IVP Last administered on 22:48; Start 05/25/17 at 22:45; Stop 05/25/17 at 22:49; Status DC Ondansetron HCl (Zofran) 4 mg PRN Q8HRS PRN IV NAUSEA/VOMITING; Start 05/25/17 at 23:45; Stop 05/26/17 at 23:44 Morphine Sulfate 4 mg PRN Q2HR PRN IV PAIN Last administered on 05/26/17 02:39 ; Start 05/25/17 at 23:45; Stop 05/26/17 at 23:44 Acetaminophen (Tylenol) 650 mg PRN Q4HRS PRN PO FEVER Last administered on 05/26 01:51; Start 05/25/17 at 23:45; Stop 05/26/17 at 23:44 Diphenhydramine HCl (Benadryl) 25 mg PRN Q6HRS PRN PO ITCHING Last administered on 05/26/17 08:21; Start 05/26/17 at 01:30 Oxycodone/ Acetaminophen (Percocet 5/325) 1 tab PRN Q4HRS PRN PO PAIN Last administered on 05/26/17 01:51; Start 05/26/17 at 01:30 Potassium Chloride (KCl Oral Soln) 40 meq 1X ONCE PO Last administered on 05/26 02:38; Start 05/26/17 at 02:30; Stop 05/26/17 at 02:31; Status DC Sodium Chloride 1,000 ml @ 100 mls/hr Q10H IV Last administered on 05/26/17 04:55; Start 05/26/17 at 04:30 Hydromorphone HCl (Dilaudid) 1 mg PRN Q2HRS PRN IV PAIN; Start 05/26/17 at 04: 30 Hydromorphone HCl (Dilaudid) 2 mg PRN Q2HR PRN IV PAIN Last administered on 6/ 29/17at 08:20; Start 05/26/17 at 04:30 Active Scripts Active Prednisone 10 Mg Tablet 10 Mg PO UD [place] 5-325 Tablet (Acetaminophen/Hydrocodone Bitart) 1 Each Tablet 1 Tab PO Q4- 6HRS Reported Ambien (Zolpidem Tartrate) 10 Mg Tablet 1 Tab PO QHS PRN at bedtime for sleep Advair 250-50 Diskus (Fluticasone/Salmeterol) 1 Each Disk.w.dev 2 Puff IH BID Proair Hfa Inhaler (Albuterol Sulfate) 8.5 Gm Hfa.aer.ad 1 Puff INH PRN Q6HRS PRN Allergies Allergies: Coded Allergies: butorphanol (Verified Allergy, Severe, anaphalaxis, 11/13/16) TOLERATES HYDROCODONE IF TAKES BENADRYL meperidine (Verified Allergy, Intermediate, rash, 11/13/16) propoxyphene (Verified Allergy, Intermediate, hives, 11/13/16) aspirin (Verified Allergy, Unknown, rash, 11/13/16) ROS General: No: Chills, Night Sweats, Fatigue, Malaise, Appetite, Other PSYCHOLOGICAL ROS: No: Anxiety, Behavioral Disorder, Concentration difficultie , Decreased libido, Depression, Disorientation, Hallucinations, Hostility, Irritablity, Memory difficulties, Mood Swings, Obsessive thoughts, Physical abuse, Sexual abuse, Sleep disturbances, Suicidal ideation, Other Eyes: No Blurry vision, No Decreased vision, No Double vision, No Dry eyes, No Excessive tearing, No Eye Pain, No Itchy Eyes, No Loss of vision, No Photophobia , No Scotomata, No Uses contacts, No Uses glasses, No Other HEENT: No: Heacaches, Visual Changes, Hearing change, Nasal congestion, Nasal discharge, Oral lesions, Sinus pain, Sore Throat, Epistaxis, Sneezing, Snoring, Tinnitus, Vertigo, Vocal changes, Other Respiratory: No: Cough, Hemoptysis, Orthopnea, Pleuritic Pain, Shortness of breath, SOB with excertion, Sputum Changes, Stridor, Tachypnea, Wheezing, Other Cardiovascular: No Chest Pain, No Palpitations, No Orthopnea, No Paroxysmal Noc. Dyspnea, No Edema, No Lt Headedness, No Other Gastrointestinal: No Nausea, No Vomiting, No Abdominal Pain, No Diarrhea, No Constipation, No Melena, No Hematochezia, No Other Genitourinary: No Dysuria, No Frequency, No Incontinence, No Hematuria, No Retention, No Discharge, No Urgency, No Pain, No Flank Pain, No Other, No , No , No , No , No , No , No Musculoskeletal: No Gait Disturbance, No Joint Pain, No Joint Stiffness, No Joint Swelling, No Muscle Pain, No Muscular Weakness, No Pain In:, No Swelling In:, No Other Neurological: No Behavorial Changes, No Bowel/Bladder ControlChng, No Confusion , No Dizziness, No Gait Disturbance, No Headaches, No Impaired Coord/balance, No Memory Loss, No Numbness/Tingling, No Seizures, No Speech Problems, No Tremors, No Visual Changes, No Weakness, No Other Skin: No Dry Skin, No Eczema, No Hair Changes, No Lumps, No Mole Changes, No Mottling, No Nail Changes, No Pruritus, No Rash, No Skin Lesion Changes, No Other, No Acne Physical Exam General: Alert, Oriented X3, Cooperative HEENT: Atraumatic, PERRLA Lungs: Clear to auscultation Heart: no gallops, no murmurs Abdomen: Normal bowel sounds, Soft Rectal Exam: not examined Extremities: No clubbing, No cyanosis, No edema Skin: No rashes, No breakdown Neuro: Normal tone, Sensation intact, Cranial nerves 3-12 NL Psych/Mental Status: Mood NL Vitals Vitals Vital Signs Date Time Temp Pulse Resp B/P (MAP) Pulse Ox O2 Delivery O2 Flow Rate FiO2 05/26/17 08:20 Room Air 05/26/17 05:46 75 18 88/62 (71) 05/26/17 03:00 97.5 91 97.5 Labs Labs Laboratory Tests Test 05/25/17 23:25 White Blood Count 9.8 x10^3/uL (4.0-11.0) Red Blood Count 3.80 x10^6/uL (3.50-5.40) Hemoglobin 11.6 g/dL (12.0-15.5) Hematocrit 35.3 % (36.0-47.0) Mean Corpuscular Volume 93 fL (79-100) Mean Corpuscular Hemoglobin 31 pg (25-35) Mean Corpuscular Hemoglobin Concent 33 g/dL (31-37) Red Cell Distribution Width 14.2 % (11.5-14.5) Platelet Count 211 x10^3/uL (140-400) Neutrophils (%) (Auto) 84 % (31-73) Lymphocytes (%) (Auto) 13 % (24-48) Monocytes (%) (Auto) 3 % (0-9) Eosinophils (%) (Auto) 1 % (0-3) Basophils (%) (Auto) 1 % (0-3) Neutrophils # (Auto) 8.2 x10^3uL (1.8-7.7) Lymphocytes # (Auto) 1.2 x10^3/uL (1.0-4.8) Monocytes # (Auto) 0.2 x10^3/uL (0.0-1.1) Eosinophils # (Auto) 0.1 x10^3/uL (0.0-0.7) Basophils # (Auto) 0.1 x10^3/uL (0.0-0.2) Sodium Level 140 mmol/L (136-145) Potassium Level 3.3 mmol/L (3.5-5.1) Chloride Level 105 mmol/L (98-107) Carbon Dioxide Level 27 mmol/L (21-32) Anion Gap 8 (6-14) Blood Urea Nitrogen 12 mg/dL (7-20) Creatinine 0.7 mg/dL (0.6-1.0) Estimated GFR (Cockcroft-Gault) 86.6 Glucose Level 95 mg/dL (70-99) Calcium Level 8.7 mg/dL (8.5-10.1) Laboratory Tests Test 05/25/17 23:25 White Blood Count 9.8 x10^3/uL (4.0-11.0) Red Blood Count 3.80 x10^6/uL (3.50-5.40) Hemoglobin 11.6 g/dL (12.0-15.5) Hematocrit 35.3 % (36.0-47.0) Mean Corpuscular Volume 93 fL (79-100) Mean Corpuscular Hemoglobin 31 pg (25-35) Mean Corpuscular Hemoglobin Concent 33 g/dL (31-37) Red Cell Distribution Width 14.2 % (11.5-14.5) Platelet Count 211 x10^3/uL (140-400) Neutrophils (%) (Auto) 84 % (31-73) Lymphocytes (%) (Auto) 13 % (24-48) Monocytes (%) (Auto) 3 % (0-9) Eosinophils (%) (Auto) 1 % (0-3) Basophils (%) (Auto) 1 % (0-3) Neutrophils # (Auto) 8.2 x10^3uL (1.8-7.7) Lymphocytes # (Auto) 1.2 x10^3/uL (1.0-4.8) Monocytes # (Auto) 0.2 x10^3/uL (0.0-1.1) Eosinophils # (Auto) 0.1 x10^3/uL (0.0-0.7) Basophils # (Auto) 0.1 x10^3/uL (0.0-0.2) Sodium Level 140 mmol/L (136-145) Potassium Level 3.3 mmol/L (3.5-5.1) Chloride Level 105 mmol/L (98-107) Carbon Dioxide Level 27 mmol/L (21-32) Anion Gap 8 (6-14) Blood Urea Nitrogen 12 mg/dL (7-20) Creatinine 0.7 mg/dL (0.6-1.0) Estimated GFR (Cockcroft-Gault) 86.6 Glucose Level 95 mg/dL (70-99) Calcium Level 8.7 mg/dL (8.5-10.1) VTE Prophylaxis Ordered VTE Prophylaxis Devices: No VTE Pharmacological Prophylaxi: Yes Assessment/Plan Assessment/Plan Acute pelvis pain, Pelvic fracture Ortho consulted, back pain, Non weight bearing of left/ CT scan noncon, eval for SI, femoral neck, cont PO and IV pain control, Asthma, crohns, TITO FAIRCHILD MD May 26, 2017 08:32
[2017-05-26] MEDS ORDERED: diphenhydrAMINE 50 MG/ML VIAL IVP PRN (08:45)
[2017-05-26] MEDS ORDERED: ALBUTEROL SULFATE 2.5 MG/3 ML NEBU. NEB PRN (09:00)
[2017-05-26] MEDS ORDERED: ACETAMINOPHEN 325 MG TABLET. PO PRN (09:00)
[2017-05-26] MEDS ORDERED: ZOLPIDEM 5 MG TABLET. PO PRN (09:00)
[2017-05-26] MEDS: KETOROLAC 15 MG/ML VIAL. IV PRN ×2 (09:03→17:01)
[2017-05-26] MEDS: predniSONE 10 MG TABLET PO SCH (09:35)
--- NOTE | 2017-05-26 09:54 | RAD ---
CT study of the pelvis without contrast Clinical indications: Fall and back pain and pelvic pain. Possible fracture. Technique: Noncontrast helical CT scanning of the pelvis was performed. Multiplanar 2-D reconstructions were generated. PQRS Compliance Statement: One or more of the following individualized dose reduction techniques were utilized for this examination: 1. Automated exposure control 2. Adjustment of the mA and/or kV according to patient size 3. Use of iterative reconstruction technique Comparison: None available. Findings: There is an oblique fracture of the body of the left pubic bone. There is a fracture of the left superior pubic ramus at the junction with the left pubic bone. There is a fracture of the junction of the inferior pubic ramus with the left pubic bone. No significant displacement of the fractures are seen. No diastases of the symphysis pubis is seen. There is a fracture of the upper right side of the sacrum with is nondisplaced. No diastases of either SI joint is seen. No osteolytic process is seen. An ice bag is seen overlying the lower left side of the pelvis. No enlarged pelvic lymphadenopathy is seen. Urinary bladder is not abnormally distended. No dilated bowel loops or bowel wall thickening or mesenteric inflammatory change is seen within the pelvis. IMPRESSION: Fractures of the left pubic bone which extends into the junction with the left superior pubic ramus and into the junction with the left inferior pubic ramus. Fracture of the right side of the upper sacrum.
--- NOTE | 2017-05-26 10:23 | PDOC2 ---
PATT LAKHANI PAC 05/26/17 1023: CONSULT Date of Consult Date of Consult DATE: 05/26/17 TIME: 10:16 Reason for Consult Reason for Consult: Left superior inferior pubic ramus fracture Identification/Chief Complaint Chief Complaint Groin pain and low back pain Problems: (1) Fracture of left inferior pubic ramus (2) Fracture of left superior pubic ramus (3) Sacral fracture, closed Source Source: Chart review, Patient History of Present Illness Reason for Visit: Patient is a 57 year old female who presents with left groin pain, right hip pain and low back pain after a fall. She says she was working at a [employer] and tripped over a plastic while carrying a heavy box when she lost her balance & fell onto her right side with the box on top of her. She was immediately unable to bear weight after the fall. Although nodding in and out of awareness during the discussion she does state that her pain is still severe despite being on 2mg of dilaudid IV. She is adamant that she does not use pain medication except when she is in the hospital, but she admits to having crohns dz and having had more than 10 bowel resections. Past Medical History Cardiovascular: No pertinent hx Pulmonary: Asthma CENTRAL NERVOUS SYSTEM: Other GI: Inflam bowel disease Heme/Onc: No pertinent hx Hepatobiliary: Hep A/B/C Musculoskeletal: Osteoarthritis Rheumatologic: Rheumatoid arthritis Infectious disease: No pertinent hx Renal/: No pertinent hx Endocrine: No pertinent hx Past Surgical History Past Surgical History: Hysterectomy, Colon Resection Family History Family History: Coronary Artery Disease, Other Social History No ALCOHOL: none Drugs: None Lives: with Family Current Problem List Problem List Left pubic root fracture, right superior sacral fracture Current Medications Current Medications Current Medications Morphine Sulfate 5 mg 1X ONCE IV Last administered on 05/25/17 22:48; Start 05/25/17 at 22:45; Stop 05/25/17 at 22:49; Status DC Ondansetron HCl (Zofran) 4 mg 1X ONCE IV Last administered on 05/25/17 22:49 ; Start 05/25/17 at 23:00; Stop 05/25/17 at 23:01; Status DC Morphine Sulfate 4 mg PRN Q15MIN PRN IV/SQ PAIN GREATER THAN 3/10 Last administered on 05/26/17 00:40; Start 05/25/17 at 23:00; Stop 05/26/17 at 08:53 ; Status DC Ondansetron HCl (Zofran) 4 mg STK-MED ONCE .ROUTE ; Start 05/25/17 at 22:39; Stop 05/25/17 at 22:40; Status DC Diphenhydramine HCl (Benadryl) 50 mg STK-MED ONCE .ROUTE ; Start 05/25/17 at 22: 39; Stop 05/25/17 at 22:40; Status DC Morphine Sulfate 10 mg STK-MED ONCE .ROUTE ; Start 05/25/17 at 22:40; Stop 05/25 at 22:41; Status DC Diphenhydramine HCl (Benadryl) 25 mg 1X ONCE IVP Last administered on 22:48; Start 05/25/17 at 22:45; Stop 05/25/17 at 22:49; Status DC Ondansetron HCl (Zofran) 4 mg PRN Q8HRS PRN IV NAUSEA/VOMITING; Start 05/25/17 at 23:45; Stop 05/26/17 at 23:44 Morphine Sulfate 4 mg PRN Q2HR PRN IV PAIN Last administered on 05/26/17 02:39 ; Start 05/25/17 at 23:45; Stop 05/26/17 at 23:44 Acetaminophen (Tylenol) 650 mg PRN Q4HRS PRN PO FEVER Last administered on 05/26 01:51; Start 05/25/17 at 23:45; Stop 05/26/17 at 08:46; Status DC Diphenhydramine HCl (Benadryl) 25 mg PRN Q6HRS PRN PO ITCHING Last administered on 05/26/17 08:21; Start 05/26/17 at 01:30 Oxycodone/ Acetaminophen (Percocet 5/325) 1 tab PRN Q4HRS PRN PO PAIN Last administered on 05/26/17 01:51; Start 05/26/17 at 01:30; Stop 05/26/17 at 08:45 ; Status DC Potassium Chloride (KCl Oral Soln) 40 meq 1X ONCE PO Last administered on 05/26 02:38; Start 05/26/17 at 02:30; Stop 05/26/17 at 02:31; Status DC Sodium Chloride 1,000 ml @ 100 mls/hr Q10H IV Last administered on 05/26/17 04:55; Start 05/26/17 at 04:30 Hydromorphone HCl (Dilaudid) 1 mg PRN Q2HRS PRN IV PAIN; Start 05/26/17 at 04: 30 Hydromorphone HCl (Dilaudid) 2 mg PRN Q2HR PRN IV PAIN Last administered on 08:20; Start 05/26/17 at 04:30 Diphenhydramine HCl (Benadryl) 25 mg PRN Q6HRS PRN IVP ITCHING Last administered on 05/26/17 09:01; Start 05/26/17 at 08:45 Oxycodone/ Acetaminophen (Percocet 10/325) 1 tab PRN Q4HRS PRN PO pain; Start 05/26/17 at 08:45 Acetaminophen (Tylenol) 650 mg PRN Q8HRS PRN PO FEVER; Start 05/26/17 at 09:00 Ketorolac Tromethamine (Toradol) 15 mg PRN Q6HRS PRN IV PAIN Last administered on 05/26/17 09:03; Start 05/26/17 at 08:45; Stop 05/31/17 at 08:44 Budesonide (Pulmicort) 0.5 mg RTBID NEB ; Start 05/26/17 at 09:00 Albuterol Sulfate (Ventolin Neb Soln) 2.5 mg PRN Q4HRS PRN NEB SHORTNESS OF BREATH; Start 05/26/17 at 09:00 Prednisone (Prednisone) 10 mg DAILY PO Last administered on 05/26/17 09:35; Start 05/26/17 at 09:00 Zolpidem Tartrate (Ambien) 5 mg PRN QHS PRN PO INSOMNIA, MAY REPEAT X1; Start 05/26/17 at 09:00 Active Scripts Active Prednisone 10 Mg Tablet 10 Mg PO UD [place] 5-325 Tablet (Acetaminophen/Hydrocodone Bitart) 1 Each Tablet 1 Tab PO Q4- 6HRS Reported Ambien (Zolpidem Tartrate) 10 Mg Tablet 1 Tab PO QHS PRN at bedtime for sleep Advair 250-50 Diskus (Fluticasone/Salmeterol) 1 Each Disk.w.dev 2 Puff IH BID Proair Hfa Inhaler (Albuterol Sulfate) 8.5 Gm Hfa.aer.ad 1 Puff INH PRN Q6HRS PRN Allergies Allergies: Coded Allergies: butorphanol (Verified Allergy, Severe, anaphalaxis, 11/13/16) TOLERATES HYDROCODONE IF TAKES BENADRYL meperidine (Verified Allergy, Intermediate, rash, 11/13/16) propoxyphene (Verified Allergy, Intermediate, hives, 11/13/16) aspirin (Verified Allergy, Unknown, rash, 11/13/16) ROS Musculoskeletal: Yes Pain In: (Left groin, right hip, lower back) Physical Exam General: Other (In and out of awareness, but able to listen and clearly convey history and symptoms.) MUSCULOSKELETAL: Other (Patient lying supine in bed with back slightly elevated and left leg propped up on a pillow in a position of comfort. Right leg log roll negative, patient has mild pain with right leg DEDE, mild tenderness to palpation over right sacroiliac joint, exquisite tenderness to palpation over left sacroiliac joint) Vitals VITALS Vital Signs Date Time Temp Pulse Resp B/P (MAP) Pulse Ox O2 Delivery O2 Flow Rate FiO2 05/26/17 09:03 Room Air 05/26/17 07:00 97.6 95 20 97/51 (66) 95 97.6 Labs Labs Laboratory Tests Test 05/25/17 23:25 White Blood Count 9.8 x10^3/uL (4.0-11.0) Red Blood Count 3.80 x10^6/uL (3.50-5.40) Hemoglobin 11.6 g/dL (12.0-15.5) Hematocrit 35.3 % (36.0-47.0) Mean Corpuscular Volume 93 fL (79-100) Mean Corpuscular Hemoglobin 31 pg (25-35) Mean Corpuscular Hemoglobin Concent 33 g/dL (31-37) Red Cell Distribution Width 14.2 % (11.5-14.5) Platelet Count 211 x10^3/uL (140-400) Neutrophils (%) (Auto) 84 % (31-73) Lymphocytes (%) (Auto) 13 % (24-48) Monocytes (%) (Auto) 3 % (0-9) Eosinophils (%) (Auto) 1 % (0-3) Basophils (%) (Auto) 1 % (0-3) Neutrophils # (Auto) 8.2 x10^3uL (1.8-7.7) Lymphocytes # (Auto) 1.2 x10^3/uL (1.0-4.8) Monocytes # (Auto) 0.2 x10^3/uL (0.0-1.1) Eosinophils # (Auto) 0.1 x10^3/uL (0.0-0.7) Basophils # (Auto) 0.1 x10^3/uL (0.0-0.2) Sodium Level 140 mmol/L (136-145) Potassium Level 3.3 mmol/L (3.5-5.1) Chloride Level 105 mmol/L (98-107) Carbon Dioxide Level 27 mmol/L (21-32) Anion Gap 8 (6-14) Blood Urea Nitrogen 12 mg/dL (7-20) Creatinine 0.7 mg/dL (0.6-1.0) Estimated GFR (Cockcroft-Gault) 86.6 Glucose Level 95 mg/dL (70-99) Calcium Level 8.7 mg/dL (8.5-10.1) Laboratory Tests Test 05/25/17 23:25 White Blood Count 9.8 x10^3/uL (4.0-11.0) Red Blood Count 3.80 x10^6/uL (3.50-5.40) Hemoglobin 11.6 g/dL (12.0-15.5) Hematocrit 35.3 % (36.0-47.0) Mean Corpuscular Volume 93 fL (79-100) Mean Corpuscular Hemoglobin 31 pg (25-35) Mean Corpuscular Hemoglobin Concent 33 g/dL (31-37) Red Cell Distribution Width 14.2 % (11.5-14.5) Platelet Count 211 x10^3/uL (140-400) Neutrophils (%) (Auto) 84 % (31-73) Lymphocytes (%) (Auto) 13 % (24-48) Monocytes (%) (Auto) 3 % (0-9) Eosinophils (%) (Auto) 1 % (0-3) Basophils (%) (Auto) 1 % (0-3) Neutrophils # (Auto) 8.2 x10^3uL (1.8-7.7) Lymphocytes # (Auto) 1.2 x10^3/uL (1.0-4.8) Monocytes # (Auto) 0.2 x10^3/uL (0.0-1.1) Eosinophils # (Auto) 0.1 x10^3/uL (0.0-0.7) Basophils # (Auto) 0.1 x10^3/uL (0.0-0.2) Sodium Level 140 mmol/L (136-145) Potassium Level 3.3 mmol/L (3.5-5.1) Chloride Level 105 mmol/L (98-107) Carbon Dioxide Level 27 mmol/L (21-32) Anion Gap 8 (6-14) Blood Urea Nitrogen 12 mg/dL (7-20) Creatinine 0.7 mg/dL (0.6-1.0) Estimated GFR (Cockcroft-Gault) 86.6 Glucose Level 95 mg/dL (70-99) Calcium Level 8.7 mg/dL (8.5-10.1) Images Images pelvis plain films reveal superior and inferior left pubic ramus fractures pelvis ct reveals superior and inferior left pubic ramus fractures and a superior right sacral fracture Assessment/Plan Assessment/Plan PHYSICAL THERAPY/OT start now with gradual weight bearing as tolerated Continue pain control as appropriate in this patient. Continue bowel regimen to minimize constipation. Would recommend DVT prophylaxis. LUCIAN BLISS MD 05/26/17 1440: CONSULT Allergies Allergies: Coded Allergies: butorphanol (Verified Allergy, Severe, anaphalaxis, 11/13/16) TOLERATES HYDROCODONE IF TAKES BENADRYL meperidine (Verified Allergy, Intermediate, rash, 11/13/16) propoxyphene (Verified Allergy, Intermediate, hives, 11/13/16) aspirin (Verified Allergy, Unknown, rash, 11/13/16) Assessment/Plan Assessment/Plan I personally saw and examined the patient and agree with above. She is a chronic steroid user, and likely has very poor bone quality. We will check her vitamin D level, and will need postmobilization films of her pelvis after she ambulates with PT. (just ap/ inlet/ outlet of the pelvis). On my exam she had greater ttp over the left posterior SIJ, however the fracture is on her right anterior sacrum. As long as her post mobilization films are stable, she is ok to be wbat, recc pain control, minimize narcotics, bowel regiment, dvt ppx and fu in 2 weeks in my office for repeat xrays. Placement will be dependent on her activity level. PATT LAKHANI May 26, 2017 10:23 LUCIAN BLISS MD May 26, 2017 14:40
--- NOTE | 2017-05-26 10:25 | PDOC2 ---
CONSULT Date of Consult Date of Consult DATE: 05/26/17 TIME: 10:16 Reason for Consult Reason for Consult: rehab evaluation Referring Physician Referring Physician: . Identification/Chief Complaint Chief Complaint Pain left groin and low back since fall yesterday and nausea. Problems: Source Source: Patient History of Present Illness Reason for Visit: This is a 57 year old right handed female with fall and injury to her hip and low back on 05/25/2017 and difficulty to weight bear on her left foot and x-ray and ct scan revealed fracture left superior and inferior pubic rami. Past Medical History Cardiovascular: No pertinent hx Pulmonary: Asthma CENTRAL NERVOUS SYSTEM: Other GI: Inflam bowel disease Heme/Onc: No pertinent hx Hepatobiliary: Hep A/B/C Musculoskeletal: Osteoarthritis Rheumatologic: Rheumatoid arthritis Infectious disease: No pertinent hx Renal/: No pertinent hx Endocrine: No pertinent hx Past Surgical History Past Surgical History: Hysterectomy, Colon Resection Family History Family History: Coronary Artery Disease, Other Social History No ALCOHOL: none Drugs: None Lives: with Family Current Medications Current Medications Current Medications Morphine Sulfate 5 mg 1X ONCE IV Last administered on 05/25/17 22:48; Start 05/25/17 at 22:45; Stop 05/25/17 at 22:49; Status DC Ondansetron HCl (Zofran) 4 mg 1X ONCE IV Last administered on 05/25/17 22:49 ; Start 05/25/17 at 23:00; Stop 05/25/17 at 23:01; Status DC Morphine Sulfate 4 mg PRN Q15MIN PRN IV/SQ PAIN GREATER THAN 3/10 Last administered on 05/26/17 00:40; Start 05/25/17 at 23:00; Stop 05/26/17 at 08:53 ; Status DC Ondansetron HCl (Zofran) 4 mg STK-MED ONCE .ROUTE ; Start 05/25/17 at 22:39; Stop 05/25/17 at 22:40; Status DC Diphenhydramine HCl (Benadryl) 50 mg STK-MED ONCE .ROUTE ; Start 05/25/17 at 22: 39; Stop 05/25/17 at 22:40; Status DC Morphine Sulfate 10 mg STK-MED ONCE .ROUTE ; Start 05/25/17 at 22:40; Stop 05/25 at 22:41; Status DC Diphenhydramine HCl (Benadryl) 25 mg 1X ONCE IVP Last administered on 22:48; Start 05/25/17 at 22:45; Stop 05/25/17 at 22:49; Status DC Ondansetron HCl (Zofran) 4 mg PRN Q8HRS PRN IV NAUSEA/VOMITING; Start 05/25/17 at 23:45; Stop 05/26/17 at 23:44 Morphine Sulfate 4 mg PRN Q2HR PRN IV PAIN Last administered on 05/26/17 02:39 ; Start 05/25/17 at 23:45; Stop 05/26/17 at 23:44 Acetaminophen (Tylenol) 650 mg PRN Q4HRS PRN PO FEVER Last administered on 05/26 01:51; Start 05/25/17 at 23:45; Stop 05/26/17 at 08:46; Status DC Diphenhydramine HCl (Benadryl) 25 mg PRN Q6HRS PRN PO ITCHING Last administered on 05/26/17 08:21; Start 05/26/17 at 01:30 Oxycodone/ Acetaminophen (Percocet 5/325) 1 tab PRN Q4HRS PRN PO PAIN Last administered on 05/26/17 01:51; Start 05/26/17 at 01:30; Stop 05/26/17 at 08:45 ; Status DC Potassium Chloride (KCl Oral Soln) 40 meq 1X ONCE PO Last administered on 05/26 02:38; Start 05/26/17 at 02:30; Stop 05/26/17 at 02:31; Status DC Sodium Chloride 1,000 ml @ 100 mls/hr Q10H IV Last administered on 05/26/17 04:55; Start 05/26/17 at 04:30 Hydromorphone HCl (Dilaudid) 1 mg PRN Q2HRS PRN IV PAIN; Start 05/26/17 at 04: 30 Hydromorphone HCl (Dilaudid) 2 mg PRN Q2HR PRN IV PAIN Last administered on 08:20; Start 05/26/17 at 04:30 Diphenhydramine HCl (Benadryl) 25 mg PRN Q6HRS PRN IVP ITCHING Last administered on 05/26/17 09:01; Start 05/26/17 at 08:45 Oxycodone/ Acetaminophen (Percocet 10/325) 1 tab PRN Q4HRS PRN PO pain; Start 05/26/17 at 08:45 Acetaminophen (Tylenol) 650 mg PRN Q8HRS PRN PO FEVER; Start 05/26/17 at 09:00 Ketorolac Tromethamine (Toradol) 15 mg PRN Q6HRS PRN IV PAIN Last administered on 05/26/17 09:03; Start 05/26/17 at 08:45; Stop 05/31/17 at 08:44 Budesonide (Pulmicort) 0.5 mg RTBID NEB ; Start 05/26/17 at 09:00 Albuterol Sulfate (Ventolin Neb Soln) 2.5 mg PRN Q4HRS PRN NEB SHORTNESS OF BREATH; Start 05/26/17 at 09:00 Prednisone (Prednisone) 10 mg DAILY PO Last administered on 05/26/17 09:35; Start 05/26/17 at 09:00 Zolpidem Tartrate (Ambien) 5 mg PRN QHS PRN PO INSOMNIA, MAY REPEAT X1; Start 05/26/17 at 09:00 Active Scripts Active Prednisone 10 Mg Tablet 10 Mg PO UD [place] 5-325 Tablet (Acetaminophen/Hydrocodone Bitart) 1 Each Tablet 1 Tab PO Q4- 6HRS Reported Ambien (Zolpidem Tartrate) 10 Mg Tablet 1 Tab PO QHS PRN at bedtime for sleep Advair 250-50 Diskus (Fluticasone/Salmeterol) 1 Each Disk.w.dev 2 Puff IH BID Proair Hfa Inhaler (Albuterol Sulfate) 8.5 Gm Hfa.aer.ad 1 Puff INH PRN Q6HRS PRN Allergies Allergies: Coded Allergies: butorphanol (Verified Allergy, Severe, anaphalaxis, 11/13/16) TOLERATES HYDROCODONE IF TAKES BENADRYL meperidine (Verified Allergy, Intermediate, rash, 11/13/16) propoxyphene (Verified Allergy, Intermediate, hives, 11/13/16) aspirin (Verified Allergy, Unknown, rash, 11/13/16) Physical Exam General: Alert, Cooperative, moderate distress HEENT: PERRLA, Mucous membr. moist/pink Lungs: Clear to auscultation, Normal air movement Heart: Regular rate, Normal S1, Normal S2, No murmurs Abdomen: Normal bowel sounds, Soft, No tenderness, No hepatosplenomegaly, No masses Extremities: Other (tenderness to palpation over lef tgroin,trochanteric bursa bilaterally and left gluteal muscles,and sacroiliac joint and bruised area right leg distal part.) Skin: Other (small bruised area right leg.) Neuro: Other (She had absent ankle jerks and she had painfree ROM of both hips and knees and ankles.) Vitals VITALS Vital Signs Date Time Temp Pulse Resp B/P (MAP) Pulse Ox O2 Delivery O2 Flow Rate FiO2 05/26/17 09:03 Room Air 05/26/17 07:00 97.6 95 20 97/51 (66) 95 97.6 Labs Labs Laboratory Tests Test 05/25/17 23:25 White Blood Count 9.8 x10^3/uL (4.0-11.0) Red Blood Count 3.80 x10^6/uL (3.50-5.40) Hemoglobin 11.6 g/dL (12.0-15.5) Hematocrit 35.3 % (36.0-47.0) Mean Corpuscular Volume 93 fL (79-100) Mean Corpuscular Hemoglobin 31 pg (25-35) Mean Corpuscular Hemoglobin Concent 33 g/dL (31-37) Red Cell Distribution Width 14.2 % (11.5-14.5) Platelet Count 211 x10^3/uL (140-400) Neutrophils (%) (Auto) 84 % (31-73) Lymphocytes (%) (Auto) 13 % (24-48) Monocytes (%) (Auto) 3 % (0-9) Eosinophils (%) (Auto) 1 % (0-3) Basophils (%) (Auto) 1 % (0-3) Neutrophils # (Auto) 8.2 x10^3uL (1.8-7.7) Lymphocytes # (Auto) 1.2 x10^3/uL (1.0-4.8) Monocytes # (Auto) 0.2 x10^3/uL (0.0-1.1) Eosinophils # (Auto) 0.1 x10^3/uL (0.0-0.7) Basophils # (Auto) 0.1 x10^3/uL (0.0-0.2) Sodium Level 140 mmol/L (136-145) Potassium Level 3.3 mmol/L (3.5-5.1) Chloride Level 105 mmol/L (98-107) Carbon Dioxide Level 27 mmol/L (21-32) Anion Gap 8 (6-14) Blood Urea Nitrogen 12 mg/dL (7-20) Creatinine 0.7 mg/dL (0.6-1.0) Estimated GFR (Cockcroft-Gault) 86.6 Glucose Level 95 mg/dL (70-99) Calcium Level 8.7 mg/dL (8.5-10.1) Laboratory Tests Test 05/25/17 23:25 White Blood Count 9.8 x10^3/uL (4.0-11.0) Red Blood Count 3.80 x10^6/uL (3.50-5.40) Hemoglobin 11.6 g/dL (12.0-15.5) Hematocrit 35.3 % (36.0-47.0) Mean Corpuscular Volume 93 fL (79-100) Mean Corpuscular Hemoglobin 31 pg (25-35) Mean Corpuscular Hemoglobin Concent 33 g/dL (31-37) Red Cell Distribution Width 14.2 % (11.5-14.5) Platelet Count 211 x10^3/uL (140-400) Neutrophils (%) (Auto) 84 % (31-73) Lymphocytes (%) (Auto) 13 % (24-48) Monocytes (%) (Auto) 3 % (0-9) Eosinophils (%) (Auto) 1 % (0-3) Basophils (%) (Auto) 1 % (0-3) Neutrophils # (Auto) 8.2 x10^3uL (1.8-7.7) Lymphocytes # (Auto) 1.2 x10^3/uL (1.0-4.8) Monocytes # (Auto) 0.2 x10^3/uL (0.0-1.1) Eosinophils # (Auto) 0.1 x10^3/uL (0.0-0.7) Basophils # (Auto) 0.1 x10^3/uL (0.0-0.2) Sodium Level 140 mmol/L (136-145) Potassium Level 3.3 mmol/L (3.5-5.1) Chloride Level 105 mmol/L (98-107) Carbon Dioxide Level 27 mmol/L (21-32) Anion Gap 8 (6-14) Blood Urea Nitrogen 12 mg/dL (7-20) Creatinine 0.7 mg/dL (0.6-1.0) Estimated GFR (Cockcroft-Gault) 86.6 Glucose Level 95 mg/dL (70-99) Calcium Level 8.7 mg/dL (8.5-10.1) Assessment/Plan Assessment/Plan Fracture pelvis from fall on 05/25/2017 and lumbar sprain and clinical evidence of peripheral neuropathy. Rec.To get her up as tolerated and hopefully home with home when medically stable. MITUL GARCIA MD May 26, 2017 10:25
[2017-05-26] MEDS: BUDESONIDE 0.5 MG/2 ML NEBU. NEB SCH ×2 (11:17→19:42)
[2017-05-26] MEDS: oxyCODONE/APAP 10/325 1 TAB TABLET PO PRN ×3 (12:54→22:28)
[2017-05-26] MEDS: SENNOSIDES/DOCUSATE 8.6/50MG TABLET. PO PRN ×2 (12:54→22:27)
--- NOTE | 2017-05-26 13:31 | EKG ---
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
[2017-05-26] MEDS: HEPARIN PF for SUB-Q USE 5,000 UNIT/0.5 ML VIAL. SQ SCH ×2 (14:59→22:37)
--- NOTE | 2017-05-26 15:46 | RAD ---
MRI of the lumbar spine without contrast 05/26/2017 Clinical history: Low back pain with a history of fall. TECHNIQUE: Unenhanced T1-weighted and T2-weighted sagittal and axial and inversion recovery sagittal images of the lumbar spine were obtained. FINDINGS: Minimal S-shaped curvature of the thoracolumbar spine is seen. Degenerative signal changes are seen involving the L3-4, L4-5 and L5-S1 disc. Degenerative signal changes are seen within the marrow surrounding these discs. Loss of height of the L4-5 and L5-S1 disc is noted. A 1.6 cm hemangioma seen involving the T12 vertebral body. The L1-2 and L2-3 disc spaces are within normal limits. At the L3-4, L4-5 and L5-S1 disc spaces there are minimal to mild generalized disc bulges. Degenerative changes are seen involving the facet joints bilaterally. There is mild ligamentum flavum hypertrophy bilaterally. These findings when combine do not result in significant central spinal canal or neural foraminal stenosis. IMPRESSION: The changes of degenerative disc disease are seen involving the mid and lower lumbar spine. These findings do not result in significant central spinal canal or neural foraminal stenosis at any level. Electronically signed by: Derek Woodward MD (05/26/2017 3:43 PM)
[2017-05-27] VITALS (18 sets, daily range): BP systolic 83–127; BP diastolic 47–68
[2017-05-27] MEDS: IV NORMAL SALINE 1000ML BAG 1,000 ML IV SCH ×3 (00:30→20:00)
[2017-05-27] MEDS: HYDROmorphone 2 MG/ML VIAL IV PRN ×5 (05:36→21:54)
[2017-05-27] MEDS: HEPARIN PF for SUB-Q USE 5,000 UNIT/0.5 ML VIAL. SQ SCH ×3 (05:43→19:56)
[2017-05-27] MEDS: oxyCODONE/APAP 10/325 1 TAB TABLET PO PRN ×4 (07:14→21:55)
[2017-05-27] MEDS: BUDESONIDE 0.5 MG/2 ML NEBU. NEB SCH ×2 (07:45→19:15)
--- NOTE | 2017-05-27 08:16 | RAD ---
Three-view study of the pelvis including both hips. Indication: Post mobilization x-rays. History of pelvic fracture. Comparison: May 25, 2017. Findings: Again seen is a fracture of the left pubic bone including the junction of the left inferior pubic ramus and the junction of the left superior pubic ramus which are unchanged. No diastases of the symphysis pubis is seen. Fracture of the upper right sacrum seen on a pelvis is CT study dated May 26, 2017 is not appreciated on this radiographic series. No new osseous abnormality is evident. IMPRESSION: Fractures of the left pubic bone.
[2017-05-27] MEDS: predniSONE 10 MG TABLET PO SCH (08:40)
[2017-05-27] MEDS: diphenhydrAMINE HCL 25 MG CAPSULE PO PRN ×2 (08:40→19:54)
[2017-05-27] MEDS: KETOROLAC 15 MG/ML VIAL. IV PRN (09:24)
--- NOTE | 2017-05-27 10:05 | PDOC ---
PROGRESS NOTES Subjective Subjective She continues with pain left groin area. Objective Objective Vital Signs Date Time Temp Pulse Resp B/P (MAP) Pulse Ox O2 Delivery O2 Flow Rate FiO2 05/27/17 09:27 Room Air 05/27/17 07:49 98 05/27/17 07:27 97.8 91 20 110/56 (74) 97.8 Intake and Output 05/27/17 07:00 Intake Total 585 ml Balance 585 ml Intake Oral 0 ml IV Total 585 ml # Voids 3 Physical Exam Physical Exam She is getting up with roller walker and mri scan of lumbar vertebrae revealed multi level facet degenerative changes without any significant spinal stenosis. Plan Plan of Care To ask for a screen for transfer to rehab or SNF as she does not feel comfortable to go home at present. Comment Review of Relevant I have reviewed the following items gamal (where applicable) has been applied. Labs Laboratory Tests Test 05/25/17 23:25 05/26/17 12:15 White Blood Count 9.8 x10^3/uL (4.0-11.0) Red Blood Count 3.80 x10^6/uL (3.50-5.40) Hemoglobin 11.6 g/dL (12.0-15.5) Hematocrit 35.3 % (36.0-47.0) Mean Corpuscular Volume 93 fL (79-100) Mean Corpuscular Hemoglobin 31 pg (25-35) Mean Corpuscular Hemoglobin Concent 33 g/dL (31-37) Red Cell Distribution Width 14.2 % (11.5-14.5) Platelet Count 211 x10^3/uL (140-400) Neutrophils (%) (Auto) 84 % (31-73) Lymphocytes (%) (Auto) 13 % (24-48) Monocytes (%) (Auto) 3 % (0-9) Eosinophils (%) (Auto) 1 % (0-3) Basophils (%) (Auto) 1 % (0-3) Neutrophils # (Auto) 8.2 x10^3uL (1.8-7.7) Lymphocytes # (Auto) 1.2 x10^3/uL (1.0-4.8) Monocytes # (Auto) 0.2 x10^3/uL (0.0-1.1) Eosinophils # (Auto) 0.1 x10^3/uL (0.0-0.7) Basophils # (Auto) 0.1 x10^3/uL (0.0-0.2) Sodium Level 140 mmol/L (136-145) Potassium Level 3.3 mmol/L (3.5-5.1) Chloride Level 105 mmol/L (98-107) Carbon Dioxide Level 27 mmol/L (21-32) Anion Gap 8 (6-14) Blood Urea Nitrogen 12 mg/dL (7-20) Creatinine 0.7 mg/dL (0.6-1.0) Estimated GFR (Cockcroft-Gault) 86.6 Glucose Level 95 mg/dL (70-99) Calcium Level 8.7 mg/dL (8.5-10.1) 25-Hydroxy Vitamin D Total 28.5 ng/mL (30.0-100.0) Laboratory Tests Test 05/26/17 12:15 25-Hydroxy Vitamin D Total 28.5 ng/mL (30.0-100.0) Medications Current Medications Morphine Sulfate 5 mg 1X ONCE IV Last administered on 05/25/17 22:48; Start 05/25/17 at 22:45; Stop 05/25/17 at 22:49; Status DC Ondansetron HCl (Zofran) 4 mg 1X ONCE IV Last administered on 05/25/17 22:49 ; Start 05/25/17 at 23:00; Stop 05/25/17 at 23:01; Status DC Morphine Sulfate 4 mg PRN Q15MIN PRN IV/SQ PAIN GREATER THAN 3/10 Last administered on 05/26/17 00:40; Start 05/25/17 at 23:00; Stop 05/26/17 at 08:53 ; Status DC Ondansetron HCl (Zofran) 4 mg STK-MED ONCE .ROUTE ; Start 05/25/17 at 22:39; Stop 05/25/17 at 22:40; Status DC Diphenhydramine HCl (Benadryl) 50 mg STK-MED ONCE .ROUTE ; Start 05/25/17 at 22: 39; Stop 05/25/17 at 22:40; Status DC Morphine Sulfate 10 mg STK-MED ONCE .ROUTE ; Start 05/25/17 at 22:40; Stop 05/25 at 22:41; Status DC Diphenhydramine HCl (Benadryl) 25 mg 1X ONCE IVP Last administered on 22:48; Start 05/25/17 at 22:45; Stop 05/25/17 at 22:49; Status DC Ondansetron HCl (Zofran) 4 mg PRN Q8HRS PRN IV NAUSEA/VOMITING Last administered on 05/26/17 10:34; Start 05/25/17 at 23:45; Stop 05/26/17 at 23:44 ; Status DC Morphine Sulfate 4 mg PRN Q2HR PRN IV PAIN Last administered on 05/26/17 02:39 ; Start 05/25/17 at 23:45; Stop 05/26/17 at 23:44; Status DC Acetaminophen (Tylenol) 650 mg PRN Q4HRS PRN PO FEVER Last administered on 05/26 01:51; Start 05/25/17 at 23:45; Stop 05/26/17 at 08:46; Status DC Diphenhydramine HCl (Benadryl) 25 mg PRN Q6HRS PRN PO ITCHING Last administered on 05/27/17 08:40; Start 05/26/17 at 01:30 Oxycodone/ Acetaminophen (Percocet 5/325) 1 tab PRN Q4HRS PRN PO PAIN Last administered on 05/26/17 01:51; Start 05/26/17 at 01:30; Stop 05/26/17 at 08:45 ; Status DC Potassium Chloride (KCl Oral Soln) 40 meq 1X ONCE PO Last administered on 05/26 02:38; Start 05/26/17 at 02:30; Stop 05/26/17 at 02:31; Status DC Sodium Chloride 1,000 ml @ 100 mls/hr Q10H IV Last administered on 05/27/17 05:41; Start 05/26/17 at 04:30 Hydromorphone HCl (Dilaudid) 1 mg PRN Q2HRS PRN IV PAIN Last administered on 09:27; Start 05/26/17 at 04:30 Hydromorphone HCl (Dilaudid) 2 mg PRN Q2HR PRN IV PAIN Last administered on 15:02; Start 05/26/17 at 04:30; Stop 05/26/17 at 19:25; Status DC Diphenhydramine HCl (Benadryl) 25 mg PRN Q6HRS PRN IVP ITCHING Last administered on 05/26/17 09:01; Start 05/26/17 at 08:45 Oxycodone/ Acetaminophen (Percocet 10/325) 1 tab PRN Q4HRS PRN PO pain Last administered on 05/27/17 07:14; Start 05/26/17 at 08:45 Acetaminophen (Tylenol) 650 mg PRN Q8HRS PRN PO FEVER; Start 05/26/17 at 09:00 Ketorolac Tromethamine (Toradol) 15 mg PRN Q6HRS PRN IV PAIN Last administered on 05/27/17 09:24; Start 05/26/17 at 08:45; Stop 05/31/17 at 08:44 Budesonide (Pulmicort) 0.5 mg RTBID NEB Last administered on 05/27/17 07:45; Start 05/26/17 at 09:00 Albuterol Sulfate (Ventolin Neb Soln) 2.5 mg PRN Q4HRS PRN NEB SHORTNESS OF BREATH Last administered on 05/26/17 11:17; Start 05/26/17 at 09:00 Prednisone (Prednisone) 10 mg DAILY PO Last administered on 05/27/17 08:40; Start 05/26/17 at 09:00 Zolpidem Tartrate (Ambien) 5 mg PRN QHS PRN PO INSOMNIA, MAY REPEAT X1; Start 05/26/17 at 09:00 Heparin Sodium (Porcine) (Heparin Sq) 5,000 unit Q8HRS SQ Last administered on 05/27/17 05:43; Start 05/26/17 at 14:00 Senna/Docusate Sodium (Senna Plus) 2 tab PRN QHS PRN PO CONSTIPATION Last administered on 05/26/17 22:27; Start 05/26/17 at 11:30 Active Scripts Active Prednisone 10 Mg Tablet 10 Mg PO UD [place] 5-325 Tablet (Acetaminophen/Hydrocodone Bitart) 1 Each Tablet 1 Tab PO Q4- 6HRS Reported Ambien (Zolpidem Tartrate) 10 Mg Tablet 1 Tab PO QHS PRN at bedtime for sleep Advair 250-50 Diskus (Fluticasone/Salmeterol) 1 Each Disk.w.dev 2 Puff IH BID Proair Hfa Inhaler (Albuterol Sulfate) 8.5 Gm Hfa.aer.ad 1 Puff INH PRN Q6HRS PRN Vitals/I & O Vital Sign - Last 24 Hours 05/26/17 05/26/17 05/26/17 05/26/17 11:00 11:18 12:54 15:00 Temp 97.9 97.6 97.9 97.6 Pulse 92 95 Resp 20 20 B/P (MAP) 91/45 (60) 101/69 (80) Pulse Ox 91 91 93 O2 Delivery Room Air Room Air Room Air Room Air 05/26/17 05/26/17 05/26/17 05/26/17 15:02 16:00 17:05 18:06 O2 Delivery Room Air Room Air Room Air Room Air 05/26/17 05/26/17 05/26/17 05/26/17 19:00 19:44 20:00 22:28 Temp 97.7 97.7 Pulse 87 Resp 18 18 B/P (MAP) 105/55 (72) Pulse Ox 96 98 O2 Delivery Room Air Room Air Room Air Room Air 05/26/17 05/27/17 05/27/17 05/27/17 23:30 01:14 03:20 05:36 Temp 99.3 97.9 99.3 97.9 Pulse 98 95 Resp 18 16 18 B/P (MAP) 141/87 (105) 91/59 (70) Pulse Ox 100 94 O2 Delivery Room Air Room Air Room Air 05/27/17 05/27/17 05/27/17 05/27/17 07:14 07:27 07:30 07:49 Temp 97.8 97.8 Pulse 91 Resp 18 20 B/P (MAP) 110/56 (74) Pulse Ox 92 98 O2 Delivery Room Air Room Air Room Air Room Air 05/27/17 05/27/17 09:05 09:27 O2 Delivery Room Air Room Air Intake and Output 05/26/17 05/26/17 05/27/17 15:00 23:00 07:00 Intake Total 270 ml 315 ml 0 ml Balance 270 ml 315 ml 0 ml MITUL GARCIA MD May 27, 2017 10:05
[2017-05-27] MEDS ORDERED: POTASSIUM CHLORIDE 20 MEQ TABLET.ER. PO ONE (11:15)
[2017-05-27] MEDS ORDERED: ERGOCALCIFEROL (VITAMIN D2) 50,000 UNIT CAPSULE. PO SCH ×2 (11:15→17:00)
--- NOTE | 2017-05-27 11:25 | PDOC ---
Provider Note Provider Note IR Note: Asked to consider sacral vertebroplasty---thank you Karan is 57 YO female with severe right pelvic pain precipitated by a recent fall. She has h/o Crohn disease and asthma, with chronic prednisone ingestion, resulting in osteopenia/osteoporosis. PMC CT pelvis revealed right sacral fracture. She is tender to palpation over right sacrum. By history, imaging, and physical exam, I would consider Karan a reasonable candidate for intervention. Sacral vertebroplasty procedure, with benefits and risks, was discussed at length with KARAN. She understood and was anxious to proceed. She has been tentatively scheduled for right sacral vertebroplasty this afternoon in IR. Thanks again. GINNY FISCHER MD May 27, 2017 11:25
[2017-05-27 12:14] LABS: INR 1.2 (0.8-1.1); PROTHROMBIN TIME PATIENT 14.5 SEC (11.7-14.0)
--- NOTE | 2017-05-27 12:27 | PDOC ---
PROGRESS NOTES Chief Complaint Chief Complaint Acute pelvis pain, Pelvic fracture Ortho consulted, back pain, Non weight bearing of left IR consulted, eval for sacroplasty today Asthma, crohns, seem stable Vit D deficient, History of Present Illness History of Present Illness pain control vit D cont prednisone, bone weakness noted Ortho to follow outpatient PT and OT , may need rehab to IR today , discussed with Ortho and IR Vitals Vitals Vital Signs Date Time Temp Pulse Resp B/P (MAP) Pulse Ox O2 Delivery O2 Flow Rate FiO2 05/27/17 11:20 Room Air 05/27/17 10:50 98.2 98 18 108/55 (72) 91 98.2 Physical Exam General: Alert, Oriented X3, Cooperative, mild distress, Other (In and out of awareness, but able to listen and clearly convey history and symptoms.) Heart: Regular rate, Normal S1, Normal S2, No murmurs Abdomen: Normal bowel sounds, Soft, No tenderness, No hepatosplenomegaly, No masses Extremities: No cyanosis, Other (tenderness to palpation over lef tgroin, trochanteric bursa bilaterally and left gluteal muscles,and sacroiliac joint and bruised area right leg distal part.) Skin: No rashes, Other (small bruised area right leg.) Labs LABS Laboratory Tests Test 05/27/17 11:35 Prothrombin Time 14.5 SEC (11.7-14.0) Prothromb Time International Ratio 1.2 (0.8-1.1) Review of Systems Review of Systems pain, no n/v/d Comment Review of Relevant I have reviewed the following items gamal (where applicable) has been applied. Labs Laboratory Tests Test 05/25/17 23:25 05/26/17 12:15 05/27/17 11:35 White Blood Count 9.8 x10^3/uL (4.0-11.0) Red Blood Count 3.80 x10^6/uL (3.50-5.40) Hemoglobin 11.6 g/dL (12.0-15.5) Hematocrit 35.3 % (36.0-47.0) Mean Corpuscular Volume 93 fL (79-100) Mean Corpuscular Hemoglobin 31 pg (25-35) Mean Corpuscular Hemoglobin Concent 33 g/dL (31-37) Red Cell Distribution Width 14.2 % (11.5-14.5) Platelet Count 211 x10^3/uL (140-400) Neutrophils (%) (Auto) 84 % (31-73) Lymphocytes (%) (Auto) 13 % (24-48) Monocytes (%) (Auto) 3 % (0-9) Eosinophils (%) (Auto) 1 % (0-3) Basophils (%) (Auto) 1 % (0-3) Neutrophils # (Auto) 8.2 x10^3uL (1.8-7.7) Lymphocytes # (Auto) 1.2 x10^3/uL (1.0-4.8) Monocytes # (Auto) 0.2 x10^3/uL (0.0-1.1) Eosinophils # (Auto) 0.1 x10^3/uL (0.0-0.7) Basophils # (Auto) 0.1 x10^3/uL (0.0-0.2) Sodium Level 140 mmol/L (136-145) Potassium Level 3.3 mmol/L (3.5-5.1) Chloride Level 105 mmol/L (98-107) Carbon Dioxide Level 27 mmol/L (21-32) Anion Gap 8 (6-14) Blood Urea Nitrogen 12 mg/dL (7-20) Creatinine 0.7 mg/dL (0.6-1.0) Estimated GFR (Cockcroft-Gault) 86.6 Glucose Level 95 mg/dL (70-99) Calcium Level 8.7 mg/dL (8.5-10.1) 25-Hydroxy Vitamin D Total 28.5 ng/mL (30.0-100.0) Prothrombin Time 14.5 SEC (11.7-14.0) Prothromb Time International Ratio 1.2 (0.8-1.1) Laboratory Tests Test 05/27/17 11:35 Prothrombin Time 14.5 SEC (11.7-14.0) Prothromb Time International Ratio 1.2 (0.8-1.1) Medications Current Medications Morphine Sulfate 5 mg 1X ONCE IV Last administered on 05/25/17 22:48; Start 05/25/17 at 22:45; Stop 05/25/17 at 22:49; Status DC Ondansetron HCl (Zofran) 4 mg 1X ONCE IV Last administered on 05/25/17 22:49 ; Start 05/25/17 at 23:00; Stop 05/25/17 at 23:01; Status DC Morphine Sulfate 4 mg PRN Q15MIN PRN IV/SQ PAIN GREATER THAN 3/10 Last administered on 05/26/17 00:40; Start 05/25/17 at 23:00; Stop 05/26/17 at 08:53 ; Status DC Ondansetron HCl (Zofran) 4 mg STK-MED ONCE .ROUTE ; Start 05/25/17 at 22:39; Stop 05/25/17 at 22:40; Status DC Diphenhydramine HCl (Benadryl) 50 mg STK-MED ONCE .ROUTE ; Start 05/25/17 at 22: 39; Stop 05/25/17 at 22:40; Status DC Morphine Sulfate 10 mg STK-MED ONCE .ROUTE ; Start 05/25/17 at 22:40; Stop 05/25 at 22:41; Status DC Diphenhydramine HCl (Benadryl) 25 mg 1X ONCE IVP Last administered on 22:48; Start 05/25/17 at 22:45; Stop 05/25/17 at 22:49; Status DC Ondansetron HCl (Zofran) 4 mg PRN Q8HRS PRN IV NAUSEA/VOMITING Last administered on 05/26/17 10:34; Start 05/25/17 at 23:45; Stop 05/26/17 at 23:44 ; Status DC Morphine Sulfate 4 mg PRN Q2HR PRN IV PAIN Last administered on 05/26/17 02:39 ; Start 05/25/17 at 23:45; Stop 05/26/17 at 23:44; Status DC Acetaminophen (Tylenol) 650 mg PRN Q4HRS PRN PO FEVER Last administered on 05/26 01:51; Start 05/25/17 at 23:45; Stop 05/26/17 at 08:46; Status DC Diphenhydramine HCl (Benadryl) 25 mg PRN Q6HRS PRN PO ITCHING Last administered on 05/27/17 08:40; Start 05/26/17 at 01:30 Oxycodone/ Acetaminophen (Percocet 5/325) 1 tab PRN Q4HRS PRN PO PAIN Last administered on 05/26/17 01:51; Start 05/26/17 at 01:30; Stop 05/26/17 at 08:45 ; Status DC Potassium Chloride (KCl Oral Soln) 40 meq 1X ONCE PO Last administered on 05/26 02:38; Start 05/26/17 at 02:30; Stop 05/26/17 at 02:31; Status DC Sodium Chloride 1,000 ml @ 100 mls/hr Q10H IV Last administered on 05/27/17 05:41; Start 05/26/17 at 04:30 Hydromorphone HCl (Dilaudid) 1 mg PRN Q2HRS PRN IV PAIN Last administered on 09:27; Start 05/26/17 at 04:30 Hydromorphone HCl (Dilaudid) 2 mg PRN Q2HR PRN IV PAIN Last administered on 15:02; Start 05/26/17 at 04:30; Stop 05/26/17 at 19:25; Status DC Diphenhydramine HCl (Benadryl) 25 mg PRN Q6HRS PRN IVP ITCHING Last administered on 05/26/17 09:01; Start 05/26/17 at 08:45 Oxycodone/ Acetaminophen (Percocet 10/325) 1 tab PRN Q4HRS PRN PO pain Last administered on 05/27/17 11:18; Start 05/26/17 at 08:45 Acetaminophen (Tylenol) 650 mg PRN Q8HRS PRN PO FEVER; Start 05/26/17 at 09:00 Ketorolac Tromethamine (Toradol) 15 mg PRN Q6HRS PRN IV PAIN Last administered on 05/27/17 09:24; Start 05/26/17 at 08:45; Stop 05/31/17 at 08:44 Budesonide (Pulmicort) 0.5 mg RTBID NEB Last administered on 05/27/17 07:45; Start 05/26/17 at 09:00 Albuterol Sulfate (Ventolin Neb Soln) 2.5 mg PRN Q4HRS PRN NEB SHORTNESS OF BREATH Last administered on 05/26/17 11:17; Start 05/26/17 at 09:00 Prednisone (Prednisone) 10 mg DAILY PO Last administered on 05/27/17 08:40; Start 05/26/17 at 09:00 Zolpidem Tartrate (Ambien) 5 mg PRN QHS PRN PO INSOMNIA, MAY REPEAT X1; Start 05/26/17 at 09:00 Heparin Sodium (Porcine) (Heparin Sq) 5,000 unit Q8HRS SQ Last administered on 05/27/17 05:43; Start 05/26/17 at 14:00 Senna/Docusate Sodium (Senna Plus) 2 tab PRN QHS PRN PO CONSTIPATION Last administered on 05/26/17 22:27; Start 05/26/17 at 11:30 Ergocalciferol (Vitamin D2) 50,000 unit WEEKLY PO ; Start 05/27/17 at 11:15 Potassium Chloride (Klor-Con) 40 meq 1X ONCE PO Last administered on 11:17; Start 05/27/17 at 11:15; Stop 05/27/17 at 11:16; Status DC Active Scripts Active Prednisone 10 Mg Tablet 10 Mg PO UD [place] 5-325 Tablet (Acetaminophen/Hydrocodone Bitart) 1 Each Tablet 1 Tab PO Q4- 6HRS Reported Ambien (Zolpidem Tartrate) 10 Mg Tablet 1 Tab PO QHS PRN at bedtime for sleep Advair 250-50 Diskus (Fluticasone/Salmeterol) 1 Each Disk.w.dev 2 Puff IH BID Proair Hfa Inhaler (Albuterol Sulfate) 8.5 Gm Hfa.aer.ad 1 Puff INH PRN Q6HRS PRN Vitals/I & O Vital Sign - Last 24 Hours 05/26/17 05/26/17 05/26/17 05/26/17 12:54 15:00 15:02 16:00 Temp 97.6 97.6 Pulse 95 Resp 20 B/P (MAP) 101/69 (80) Pulse Ox 93 O2 Delivery Room Air Room Air Room Air Room Air 05/26/17 05/26/17 05/26/17 05/26/17 17:05 18:06 19:00 19:44 Temp 97.7 97.7 Pulse 87 Resp 18 B/P (MAP) 105/55 (72) Pulse Ox 96 98 O2 Delivery Room Air Room Air Room Air Room Air 05/26/17 05/26/17 05/26/17 05/27/17 20:00 22:28 23:30 01:14 Temp 99.3 99.3 Pulse 98 Resp 18 18 16 B/P (MAP) 141/87 (105) Pulse Ox 100 O2 Delivery Room Air Room Air Room Air 05/27/17 05/27/17 05/27/17 05/27/17 03:20 05:36 07:14 07:27 Temp 97.9 97.8 97.9 97.8 Pulse 95 91 Resp 18 18 20 B/P (MAP) 91/59 (70) 110/56 (74) Pulse Ox 94 92 O2 Delivery Room Air Room Air Room Air Room Air 05/27/17 05/27/17 05/27/17 05/27/17 07:49 09:05 09:27 10:50 Temp 98.2 98.2 Pulse 98 Resp 18 B/P (MAP) 108/55 (72) Pulse Ox 98 91 O2 Delivery Room Air Room Air Room Air Room Air 05/27/17 05/27/17 11:18 11:20 O2 Delivery Room Air Room Air Intake and Output 05/26/17 05/26/17 05/27/17 14:59 22:59 06:59 Intake Total 270 ml 315 ml 0 ml Balance 270 ml 315 ml 0 ml TITO FAIRCHILD MD May 27, 2017 12:27
[2017-05-27] MEDS ORDERED: LIDOCAINE 1% / SOD BICARB 8.4% 20 ML VIAL. IJ ONE ×2 (14:47→15:45)
[2017-05-27] MEDS ORDERED: MIDAZOLAM HCL/PF 5 MG/5 ML VIAL. ONE (15:14)
[2017-05-27] MEDS ORDERED: fentaNYL PF VIAL 250 MCG/5 ML VIAL ONE (15:15)
[2017-05-27] MEDS ORDERED: NALOXONE 0.4 MG/ML VIAL. ONE (15:16)
[2017-05-27] MEDS ORDERED: FLUMAZENIL 0.5 MG/5 ML VIAL. IV ONE (15:16)
[2017-05-27] MEDS ORDERED: fentaNYL PF VIAL 250 MCG/5 ML VIAL IV ONE (15:45)
[2017-05-27] MEDS ORDERED: MIDAZOLAM HCL/PF 5 MG/5 ML VIAL. IV ONE (15:45)
[2017-05-27] MEDS ORDERED: KETOROLAC TROMETHAMINE 30 MG/ML INJ. IV PRN (16:00)
--- NOTE | 2017-05-27 16:04 | PDOC ---
MODERATE SEDATION ASSESSMENT RISKS/ALTERNATIVES Risks/Alternatives Risks and alternatives of this type of sedation and procedure discussed with: RISK/ALTERNATIVES: Patient H & P ON CHART H & P H & P on chart and reviewed for co-morbid conditions and appropriate labs. H&P ON CHART: Yes STATUS PREG STATUS ASSESSED: Yes MEDS/ALLERGIES REVIEWED Meds/Allergies Reviewed Medications and Allergies including time and route of recently administered narcotics and sedatives. MEDS/ALLERGIES REVIEWED: Yes ASA RATING ASA RATING: II AIRWAY ASSESSMENT Airway Assessment Airway patency, oral function limitations, presence of caps, crowns, dentures, partials, and ability to extend neck assessed. AIRWAY ASSESSMENT: Yes MALLAMPATI SCORE MALLAMPATI SCORE: II PRE-SEDATION ASSESSMENT PRE-SEDATION ASSESSMENT: Yes GINNY FISCHER MD May 27, 2017 16:04
--- NOTE | 2017-05-27 16:07 | PDOC ---
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 Post-Procedure Diagnosis Post-Procedure Diagnosis Same Procedure Performed Procedure Performed CT guided unilateral right sacral vertebroplasty Type of Anesthesia Type of Anesthesia Local + mod sedation Estimated Blood Loss EBL: Trace Condition of Patient Condition of Patient Stable. No apparent complication, apart from inadvertent extension of a small amount of opacified cement through an occult fracture line into right S1 lateral recess and neural foramen---this is of uncertain clinical significance, but could result in right S1 radiculopathy. Disposition Disposition From IR/CT return to [facility] for recovery. F/u with HIM[facility] and Dr Caicedo. Full report to follow. Please hold subQ heparin until tomorrow AM. GINNY FISCHER MD May 27, 2017 16:07
[2017-05-27] MEDS ORDERED: ONDANSETRON PF 4 MG/2 ML VIAL. IV PRN (19:45)
[2017-05-28] MEDS: HYDROmorphone 2 MG/ML VIAL IV PRN ×5 (00:09→19:57)
[2017-05-28] MEDS: diphenhydrAMINE HCL 25 MG CAPSULE PO PRN ×3 (02:03→21:08)
[2017-05-28] MEDS: oxyCODONE/APAP 10/325 1 TAB TABLET PO PRN ×4 (02:04→18:28)
[2017-05-28 03:00] VITALS: BP 96/60
[2017-05-28] MEDS: HEPARIN PF for SUB-Q USE 5,000 UNIT/0.5 ML VIAL. SQ SCH ×3 (06:21→21:10)
[2017-05-28 07:00] VITALS: BP 103/57
--- NOTE | 2017-05-28 07:28 | PDOC ---
PROGRESS NOTES Subjective Subjective She admits pain in her left knee,right elbow and cramps in her left lower extremity and would like to have her B12 injection which she gets for anemia every Tuesday. Objective Objective Vital Signs Date Time Temp Pulse Resp B/P (MAP) Pulse Ox O2 Delivery O2 Flow Rate FiO2 05/28/17 06:12 18 Room Air 05/28/17 03:00 97.8 95 96/60 (72) 90 97.8 05/27/17 15:59 3.0 Intake and Output 05/28/17 06:59 Intake Total 1500 ml Output Total 400 ml Balance 1100 ml Intake Oral 600 ml IV Total 900 ml Output Urine Total 400 ml # Voids 1 # Bowel Movements 2 Physical Exam Physical Exam She is alert and in no acute distress and she continues with pain on movement of her left hip area. No calf or thigh tenderness noted and she had pain free ROM of left knee and right elbow. Plan Plan of Care Waiting for transfer to SNF. Comment Review of Relevant I have reviewed the following items gamal (where applicable) has been applied. Labs Laboratory Tests Test 05/26/17 12:15 05/27/17 11:35 25-Hydroxy Vitamin D Total 28.5 ng/mL (30.0-100.0) Prothrombin Time 14.5 SEC (11.7-14.0) Prothromb Time International Ratio 1.2 (0.8-1.1) Laboratory Tests Test 05/27/17 11:35 Prothrombin Time 14.5 SEC (11.7-14.0) Prothromb Time International Ratio 1.2 (0.8-1.1) Medications Current Medications Morphine Sulfate 5 mg 1X ONCE IV Last administered on 05/25/17 22:48; Start 05/25/17 at 22:45; Stop 05/25/17 at 22:49; Status DC Ondansetron HCl (Zofran) 4 mg 1X ONCE IV Last administered on 05/25/17 22:49 ; Start 05/25/17 at 23:00; Stop 05/25/17 at 23:01; Status DC Morphine Sulfate 4 mg PRN Q15MIN PRN IV/SQ PAIN GREATER THAN 3/10 Last administered on 05/26/17 00:40; Start 05/25/17 at 23:00; Stop 05/26/17 at 08:53 ; Status DC Ondansetron HCl (Zofran) 4 mg STK-MED ONCE .ROUTE ; Start 05/25/17 at 22:39; Stop 05/25/17 at 22:40; Status DC Diphenhydramine HCl (Benadryl) 50 mg STK-MED ONCE .ROUTE ; Start 05/25/17 at 22: 39; Stop 05/25/17 at 22:40; Status DC Morphine Sulfate 10 mg STK-MED ONCE .ROUTE ; Start 05/25/17 at 22:40; Stop 05/25 at 22:41; Status DC Diphenhydramine HCl (Benadryl) 25 mg 1X ONCE IVP Last administered on 22:48; Start 05/25/17 at 22:45; Stop 05/25/17 at 22:49; Status DC Ondansetron HCl (Zofran) 4 mg PRN Q8HRS PRN IV NAUSEA/VOMITING Last administered on 05/26/17 10:34; Start 05/25/17 at 23:45; Stop 05/26/17 at 23:44 ; Status DC Morphine Sulfate 4 mg PRN Q2HR PRN IV PAIN Last administered on 05/26/17 02:39 ; Start 05/25/17 at 23:45; Stop 05/26/17 at 23:44; Status DC Acetaminophen (Tylenol) 650 mg PRN Q4HRS PRN PO FEVER Last administered on 05/26 01:51; Start 05/25/17 at 23:45; Stop 05/26/17 at 08:46; Status DC Diphenhydramine HCl (Benadryl) 25 mg PRN Q6HRS PRN PO ITCHING Last administered on 05/28/17 02:03; Start 05/26/17 at 01:30 Oxycodone/ Acetaminophen (Percocet 5/325) 1 tab PRN Q4HRS PRN PO PAIN Last administered on 05/26/17 01:51; Start 05/26/17 at 01:30; Stop 05/26/17 at 08:45 ; Status DC Potassium Chloride (KCl Oral Soln) 40 meq 1X ONCE PO Last administered on 05/26 02:38; Start 05/26/17 at 02:30; Stop 05/26/17 at 02:31; Status DC Sodium Chloride 1,000 ml @ 100 mls/hr Q10H IV Last administered on 05/27/17 20:00; Start 05/26/17 at 04:30 Hydromorphone HCl (Dilaudid) 1 mg PRN Q2HRS PRN IV PAIN Last administered on 04:13; Start 05/26/17 at 04:30 Hydromorphone HCl (Dilaudid) 2 mg PRN Q2HR PRN IV PAIN Last administered on 15:02; Start 05/26/17 at 04:30; Stop 05/26/17 at 19:25; Status DC Diphenhydramine HCl (Benadryl) 25 mg PRN Q6HRS PRN IVP ITCHING Last administered on 05/26/17 09:01; Start 05/26/17 at 08:45 Oxycodone/ Acetaminophen (Percocet 10/325) 1 tab PRN Q4HRS PRN PO pain Last administered on 05/28/17 06:12; Start 05/26/17 at 08:45 Acetaminophen (Tylenol) 650 mg PRN Q8HRS PRN PO FEVER Last administered on 05/27 19:54; Start 05/26/17 at 09:00 Ketorolac Tromethamine (Toradol) 15 mg PRN Q6HRS PRN IV PAIN Last administered on 05/27/17 09:24; Start 05/26/17 at 08:45; Stop 05/31/17 at 08:44 Budesonide (Pulmicort) 0.5 mg RTBID NEB Last administered on 05/27/17 19:15; Start 05/26/17 at 09:00 Albuterol Sulfate (Ventolin Neb Soln) 2.5 mg PRN Q4HRS PRN NEB SHORTNESS OF BREATH Last administered on 05/26/17 11:17; Start 05/26/17 at 09:00 Prednisone (Prednisone) 10 mg DAILY PO Last administered on 05/27/17 08:40; Start 05/26/17 at 09:00 Zolpidem Tartrate (Ambien) 5 mg PRN QHS PRN PO INSOMNIA, MAY REPEAT X1; Start 05/26/17 at 09:00 Heparin Sodium (Porcine) (Heparin Sq) 5,000 unit Q8HRS SQ Last administered on 05/28/17 06:21; Start 05/26/17 at 14:00 Senna/Docusate Sodium (Senna Plus) 2 tab PRN QHS PRN PO CONSTIPATION Last administered on 05/26/17 22:27; Start 05/26/17 at 11:30 Ergocalciferol (Vitamin D2) 50,000 unit WEEKLY PO ; Start 05/27/17 at 11:15; Stop 05/27/17 at 12:43; Status DC Potassium Chloride (Klor-Con) 40 meq 1X ONCE PO Last administered on 11:17; Start 05/27/17 at 11:15; Stop 05/27/17 at 11:16; Status DC Ergocalciferol (Vitamin D2) 50,000 unit WEEKLY PO Last administered on 17:46; Start 05/27/17 at 17:00 Lidocaine/Sodium Bicarbonate (Buffered Lidocaine 1%) 20 ml STK-MED ONCE IJ ; Start 05/27/17 at 14:47; Stop 05/27/17 at 14:48; Status DC Midazolam HCl (Versed) 5 mg STK-MED ONCE .ROUTE ; Start 05/27/17 at 15:14; Stop 05/27/17 at 15:15; Status DC Fentanyl Citrate (Fentanyl 5ml Vial) 250 mcg STK-MED ONCE .ROUTE ; Start at 15:15; Stop 05/27/17 at 15:16; Status DC Cefazolin Sodium 50 ml @ As Directed STK-MED ONCE IV ; Start 05/27/17 at 15:15; Stop 05/27/17 at 15:16; Status DC Naloxone HCl (Narcan) 0.4 mg STK-MED ONCE .ROUTE ; Start 05/27/17 at 15:16; Stop 05/27/17 at 15:17; Status DC Flumazenil (Romazicon) 0.5 mg STK-MED ONCE IV ; Start 05/27/17 at 15:16; Stop at 15:17; Status DC Lidocaine/Sodium Bicarbonate (Buffered Lidocaine 1%) 20 ml 1X ONCE IJ Last administered on 05/27/17 15:53; Start 05/27/17 at 15:45; Stop 05/27/17 at 15:46 ; Status DC Midazolam HCl (Versed) 5 mg 1X ONCE IV Last administered on 05/27/17 15:53; Start 05/27/17 at 15:45; Stop 05/27/17 at 15:46; Status DC Fentanyl Citrate (Fentanyl 5ml Vial) 250 mcg 1X ONCE IV Last administered on 15:54; Start 05/27/17 at 15:45; Stop 05/27/17 at 15:46; Status DC Cefazolin Sodium 50 ml @ 100 mls/hr 1X ONCE IV Last administered on 15:55; Start 05/27/17 at 15:45; Stop 05/27/17 at 16:14; Status DC Ketorolac Tromethamine (Toradol) 30 mg 1X PRN PRN IV MODERATE PAIN; Start 05/27 at 16:00; Stop 06/01/17 at 15:59 Ondansetron HCl (Zofran) 4 mg PRN Q8HRS PRN IV NAUSEA/VOMITING Last administered on 05/27/17 19:55; Start 05/27/17 at 19:45 Active Scripts Active Prednisone 10 Mg Tablet 10 Mg PO UD [place] 5-325 Tablet (Acetaminophen/Hydrocodone Bitart) 1 Each Tablet 1 Tab PO Q4- 6HRS Reported Ambien (Zolpidem Tartrate) 10 Mg Tablet 1 Tab PO QHS PRN at bedtime for sleep Advair 250-50 Diskus (Fluticasone/Salmeterol) 1 Each Disk.w.dev 2 Puff IH BID Proair Hfa Inhaler (Albuterol Sulfate) 8.5 Gm Hfa.aer.ad 1 Puff INH PRN Q6HRS PRN Vitals/I & O Vital Sign - Last 24 Hours 05/27/17 05/27/17 05/27/17 05/27/17 07:27 07:49 08:05 09:27 Temp 97.8 97.8 Pulse 91 Resp 20 B/P (MAP) 110/56 (74) Pulse Ox 92 98 O2 Delivery Room Air Room Air Room Air Room Air 05/27/17 05/27/17 05/27/17 05/27/17 10:50 11:18 13:01 15:25 Temp 98.2 98.2 Pulse 98 84 Resp 18 16 B/P (MAP) 108/55 (72) Pulse Ox 91 96 O2 Delivery Room Air Room Air Room Air Room Air 05/27/17 05/27/17 05/27/17 05/27/17 15:26 15:30 15:35 15:40 Pulse 84 84 84 84 Resp 11 08 12 12 Pulse Ox 94 95 95 95 O2 Delivery Nasal Cannula Nasal Cannula Nasal Cannula Nasal Cannula O2 Flow Rate 4.0 4.0 4.0 4.0 05/27/17 05/27/17 05/27/17 05/27/17 15:45 15:50 15:54 15:59 Pulse 84 84 82 Resp 12 11 08 12 Pulse Ox 95 95 94 95 O2 Delivery Nasal Cannula Nasal Cannula Room Air Nasal Cannula O2 Flow Rate 4.0 4.0 3.0 05/27/17 05/27/17 05/27/17 05/27/17 16:17 16:26 16:35 16:56 Temp 97.9 97.9 Pulse 86 79 72 Resp 18 B/P (MAP) 103/53 (70) 96/47 (63) 104/49 (67) Pulse Ox 95 94 96 O2 Delivery Room Air Room Air Room Air Room Air 05/27/17 05/27/17 05/27/17 05/27/17 17:27 17:50 17:57 18:52 Pulse 86 90 B/P (MAP) 117/54 (75) 127/58 (81) Pulse Ox 96 94 O2 Delivery Room Air Room Air Room Air Room Air 05/27/17 05/27/17 05/27/17 05/27/17 19:00 19:15 20:15 21:54 Temp 99.7 99.7 Pulse 94 Resp 18 18 B/P (MAP) 100/61 (74) Pulse Ox 91 O2 Delivery Room Air Room Air Room Air Room Air 05/27/17 05/27/17 05/28/17 05/28/17 21:55 23:00 00:09 02:04 Temp 97.9 97.9 Pulse 84 Resp 18 18 18 18 B/P (MAP) 83/56 (65) Pulse Ox 92 O2 Delivery Room Air Room Air Room Air Room Air 05/28/17 05/28/17 05/28/17 05/28/17 02:50 02:50 03:00 04:13 Temp 97.8 97.8 Pulse 95 Resp 18 18 18 B/P (MAP) 96/60 (72) Pulse Ox 90 O2 Delivery Room Air Room Air Room Air Room Air 05/28/17 05/28/17 05:20 06:12 Resp 18 18 O2 Delivery Room Air Intake and Output 05/27/17 05/27/17 05/28/17 14:59 22:59 06:59 Intake Total 900 ml 600 ml Output Total 100 ml 300 ml Balance 800 ml 300 ml MITUL GARCIA MD May 28, 2017 07:28
[2017-05-28] MEDS: BUDESONIDE 0.5 MG/2 ML NEBU. NEB SCH ×2 (07:45→18:17)
[2017-05-28] MEDS: IV NORMAL SALINE 1000ML BAG 1,000 ML IV SCH (08:38)
[2017-05-28] MEDS: predniSONE 10 MG TABLET PO SCH (08:38)
--- NOTE | 2017-05-28 09:38 | PDOC ---
PROGRESS NOTES Subjective Subjective Problems overnight: No acute issues. Pain is much better controlled. Had sacroplasty yesterday. Objective Vital Signs Vital Signs Date Time Temp Pulse Resp B/P (MAP) Pulse Ox O2 Delivery O2 Flow Rate FiO2 05/28/17 08:38 Room Air 05/28/17 07:48 97 05/28/17 07:00 99.0 88 18 103/57 (72) 99.0 05/27/17 15:59 3.0 Physical Exam BLLE: able to grossly move toes and feet. legs are extended. still pain with log roll bilaterally but much improved. Labs Laboratory Tests Test 05/26/17 12:15 05/27/17 11:35 25-Hydroxy Vitamin D Total 28.5 ng/mL (30.0-100.0) Prothrombin Time 14.5 SEC (11.7-14.0) Prothromb Time International Ratio 1.2 (0.8-1.1) Laboratory Tests Test 05/27/17 11:35 Prothrombin Time 14.5 SEC (11.7-14.0) Prothromb Time International Ratio 1.2 (0.8-1.1) Assessment Assessment POD# 1 S/P sacroplasty. Problems: (1) Pelvic fracture (2) Fracture of left superior pubic ramus (3) Fracture of left inferior pubic ramus (4) Sacral fracture, closed Plan Plan of Care The patient is Hospital day two with pelvic fractures status post sacroplasty needs physical therapy/ ot mobilization and placement. can follow-up as an outpatient. LUCIAN BLISS MD May 28, 2017 09:38
[2017-05-28] MEDS ORDERED: CYANOCOBALAMIN (VITAMIN B-12) 1,000 MCG/ML VIAL IM STA (09:46)
--- NOTE | 2017-05-28 10:15 | RAD ---
CT-guided unilateral right sacral vertebroplasty Indication: 57-year-old female with steroid induced osteoporosis, and with severe sacral pain associated with an acute right sacral fracture precipitated by a fall. Moderate sedation: 31 minutes moderate sedation was provided utilizing a total of 2 mg Versed and 100 mcg fentanyl, IV. The patient was appropriately monitored by a qualified independent observer throughout the time of moderate sedation. Antibiotic: A single dose of Ancef was administered within 1 hour of the procedure start time. Consent: The procedure was explained in its entirety to the patient and/or the patient's designated sales representative cash registers by a member of the treatment team. This included a discussion of risks and benefits and commonly accepted alternatives to the procedure, as well as expected consequences of no treatment at all. Discussion of risks included, but was not limited to, those that are most frequent and those that are rare, but possibly severe or life-threatening, as well as the possibility of unforeseen complications. Sterility: All elements of maximal sterile barrier technique, hand hygiene, skin preparation, and, if ultrasound was used, sterile ultrasound technique were followed. Procedure: Informed consent was obtained from the patient. She was placed prone on the CT scanner. Conscious sedation was provided with IV Versed and fentanyl. 1 g Ancef was given IV, prophylactically. CT-guided sacral vertebroplasty needle placement: Preliminary noncontrast CT images were obtained through sacrum, with the CT gantry in maximum caudo-cranial angulation. Posterior skin site suitable for insertion of right sacral vertebroplasty needles was selected and marked. That area was prepped and draped in the usual sterile fashion, utilizing all elements of maximal sterile barrier technique, as described above. Using aseptic technique, local anesthesia, and CT guidance, an 11-gauge sacral vertebroplasty needle was carefully advanced through posterior cortex of mid right S2 segment. That needle was then gently advanced superiorly to the level of right sacral S1 fracture lines, taking care to avoid right sacral neural foramina and right SI joint. Satisfactory position of the sacral vertebroplasty needle was documented with completion CT images. CT-guided sacral vertebroplasty cement injection: Following successful, uneventful CT-guided insertion of right sacral vertebroplasty needle, contrast opacified polymethylmethacrylate was slowly injected through the needle, in small [address] images were obtained following each small cement injection. This process was repeated several times, during gradual withdrawal of the sacral vertebroplasty needle from S1 to S2. The sacral vertebroplasty needle was then removed and a sterile dressing was applied. Completion CT images revealed satisfactory filling of upper right S1 fracture lines. However, there was inadvertent extension of opacified cement through an occult fracture line into right S1 lateral recess and neural foramen. This is of uncertain clinical significance, but could result in S1 radiculopathy, of indeterminate duration. Patient tolerated the procedure well. She was returned from the CT suite to her hospital room in stable condition. Impression: Successful CT-guided unilateral right sacral vertebroplasty, as described. PQRS Compliance Statement: One or more of the following individualized dose reduction techniques was utilized for this CT procedure: 1. Automated exposure control. 2. Adjustment of MA and/or KV according to patient size. 3. Iterative reconstruction technique.
[2017-05-28 11:00] VITALS: BP 100/42
--- NOTE | 2017-05-28 12:34 | PDOC ---
PROGRESS NOTES Chief Complaint Chief Complaint Acute pelvis pain, left Pelvic fracture Ortho consulted, back pain, Non weight bearing of left IR right sacroplasty 05/27 Asthma, crohns, seem stable Vit D deficient, vitb12 deficiency plan: pain not controlled well, on dilaudid iv, percocet 10mg will add lidocaine patch vitb12 q week cont PTOT [facility] History of Present Illness History of Present Illness pain not controlled, severe pain, taking po percocet 10 and iv dilaudid very frequently vit D cont prednisone, bone weakness noted Ortho to follow outpatient PT and OT , may need rehab s/p sacralplasty 05/27 Vitals Vitals Vital Signs Date Time Temp Pulse Resp B/P (MAP) Pulse Ox O2 Delivery O2 Flow Rate FiO2 05/28/17 11:00 98.7 86 18 100/42 (61) 96 Room Air 98.7 05/27/17 15:59 3.0 Physical Exam General: Alert, Oriented X3, Cooperative, mild distress, Other (In and out of awareness, but able to listen and clearly convey history and symptoms.) Heart: Regular rate, Normal S1, Normal S2, No murmurs Lungs: Clear Abdomen: Normal bowel sounds, Soft, No tenderness, No hepatosplenomegaly, No masses Extremities: No cyanosis, Other (tenderness to palpation over lef tgroin, trochanteric bursa bilaterally and left gluteal muscles,and sacroiliac joint and bruised area right leg distal part.) Skin: No rashes, Other (small bruised area right leg.) Review of Systems Review of Systems no fever, chills, sob or chest pain Comment Review of Relevant I have reviewed the following items gamal (where applicable) has been applied. Labs Laboratory Tests Test 05/27/17 11:35 Prothrombin Time 14.5 SEC (11.7-14.0) Prothromb Time International Ratio 1.2 (0.8-1.1) Medications Current Medications Morphine Sulfate 5 mg 1X ONCE IV Last administered on 05/25/17 22:48; Start 05/25/17 at 22:45; Stop 05/25/17 at 22:49; Status DC Ondansetron HCl (Zofran) 4 mg 1X ONCE IV Last administered on 05/25/17 22:49 ; Start 05/25/17 at 23:00; Stop 05/25/17 at 23:01; Status DC Morphine Sulfate 4 mg PRN Q15MIN PRN IV/SQ PAIN GREATER THAN 3/10 Last administered on 05/26/17 00:40; Start 05/25/17 at 23:00; Stop 05/26/17 at 08:53 ; Status DC Ondansetron HCl (Zofran) 4 mg STK-MED ONCE .ROUTE ; Start 05/25/17 at 22:39; Stop 05/25/17 at 22:40; Status DC Diphenhydramine HCl (Benadryl) 50 mg STK-MED ONCE .ROUTE ; Start 05/25/17 at 22: 39; Stop 05/25/17 at 22:40; Status DC Morphine Sulfate 10 mg STK-MED ONCE .ROUTE ; Start 05/25/17 at 22:40; Stop 05/25 at 22:41; Status DC Diphenhydramine HCl (Benadryl) 25 mg 1X ONCE IVP Last administered on 22:48; Start 05/25/17 at 22:45; Stop 05/25/17 at 22:49; Status DC Ondansetron HCl (Zofran) 4 mg PRN Q8HRS PRN IV NAUSEA/VOMITING Last administered on 05/26/17 10:34; Start 05/25/17 at 23:45; Stop 05/26/17 at 23:44 ; Status DC Morphine Sulfate 4 mg PRN Q2HR PRN IV PAIN Last administered on 05/26/17 02:39 ; Start 05/25/17 at 23:45; Stop 05/26/17 at 23:44; Status DC Acetaminophen (Tylenol) 650 mg PRN Q4HRS PRN PO FEVER Last administered on 05/26 01:51; Start 05/25/17 at 23:45; Stop 05/26/17 at 08:46; Status DC Diphenhydramine HCl (Benadryl) 25 mg PRN Q6HRS PRN PO ITCHING Last administered on 05/28/17 02:03; Start 05/26/17 at 01:30 Oxycodone/ Acetaminophen (Percocet 5/325) 1 tab PRN Q4HRS PRN PO PAIN Last administered on 05/26/17 01:51; Start 05/26/17 at 01:30; Stop 05/26/17 at 08:45 ; Status DC Potassium Chloride (KCl Oral Soln) 40 meq 1X ONCE PO Last administered on 05/26 02:38; Start 05/26/17 at 02:30; Stop 05/26/17 at 02:31; Status DC Sodium Chloride 1,000 ml @ 100 mls/hr Q10H IV Last administered on 05/28/17 08 :38; Start 05/26/17 at 04:30; Stop 05/28/17 at 09:48; Status DC Hydromorphone HCl (Dilaudid) 1 mg PRN Q2HRS PRN IV PAIN Last administered on 08:38; Start 05/26/17 at 04:30 Hydromorphone HCl (Dilaudid) 2 mg PRN Q2HR PRN IV PAIN Last administered on 15:02; Start 05/26/17 at 04:30; Stop 05/26/17 at 19:25; Status DC Diphenhydramine HCl (Benadryl) 25 mg PRN Q6HRS PRN IVP ITCHING Last administered on 05/26/17 09:01; Start 05/26/17 at 08:45 Oxycodone/ Acetaminophen (Percocet 10/325) 1 tab PRN Q4HRS PRN PO pain Last administered on 05/28/17 06:12; Start 05/26/17 at 08:45 Acetaminophen (Tylenol) 650 mg PRN Q8HRS PRN PO FEVER Last administered on 05/27 19:54; Start 05/26/17 at 09:00 Ketorolac Tromethamine (Toradol) 15 mg PRN Q6HRS PRN IV PAIN Last administered on 05/27/17 09:24; Start 05/26/17 at 08:45; Stop 05/31/17 at 08:44 Budesonide (Pulmicort) 0.5 mg RTBID NEB Last administered on 05/28/17 07:45; Start 05/26/17 at 09:00 Albuterol Sulfate (Ventolin Neb Soln) 2.5 mg PRN Q4HRS PRN NEB SHORTNESS OF BREATH Last administered on 05/26/17 11:17; Start 05/26/17 at 09:00 Prednisone (Prednisone) 10 mg DAILY PO Last administered on 05/28/17 08:38; Start 05/26/17 at 09:00 Zolpidem Tartrate (Ambien) 5 mg PRN QHS PRN PO INSOMNIA, MAY REPEAT X1; Start 05/26/17 at 09:00 Heparin Sodium (Porcine) (Heparin Sq) 5,000 unit Q8HRS SQ Last administered on 05/28/17 06:21; Start 05/26/17 at 14:00 Senna/Docusate Sodium (Senna Plus) 2 tab PRN QHS PRN PO CONSTIPATION Last administered on 05/26/17 22:27; Start 05/26/17 at 11:30 Ergocalciferol (Vitamin D2) 50,000 unit WEEKLY PO ; Start 05/27/17 at 11:15; Stop 05/27/17 at 12:43; Status DC Potassium Chloride (Klor-Con) 40 meq 1X ONCE PO Last administered on 11:17; Start 05/27/17 at 11:15; Stop 05/27/17 at 11:16; Status DC Ergocalciferol (Vitamin D2) 50,000 unit WEEKLY PO Last administered on 17:46; Start 05/27/17 at 17:00 Lidocaine/Sodium Bicarbonate (Buffered Lidocaine 1%) 20 ml STK-MED ONCE IJ ; Start 05/27/17 at 14:47; Stop 05/27/17 at 14:48; Status DC Midazolam HCl (Versed) 5 mg STK-MED ONCE .ROUTE ; Start 05/27/17 at 15:14; Stop 05/27/17 at 15:15; Status DC Fentanyl Citrate (Fentanyl 5ml Vial) 250 mcg STK-MED ONCE .ROUTE ; Start at 15:15; Stop 05/27/17 at 15:16; Status DC Cefazolin Sodium 50 ml @ As Directed STK-MED ONCE IV ; Start 05/27/17 at 15:15; Stop 05/27/17 at 15:16; Status DC Naloxone HCl (Narcan) 0.4 mg STK-MED ONCE .ROUTE ; Start 05/27/17 at 15:16; Stop 05/27/17 at 15:17; Status DC Flumazenil (Romazicon) 0.5 mg STK-MED ONCE IV ; Start 05/27/17 at 15:16; Stop at 15:17; Status DC Lidocaine/Sodium Bicarbonate (Buffered Lidocaine 1%) 20 ml 1X ONCE IJ Last administered on 05/27/17 15:53; Start 05/27/17 at 15:45; Stop 05/27/17 at 15:46 ; Status DC Midazolam HCl (Versed) 5 mg 1X ONCE IV Last administered on 05/27/17 15:53; Start 05/27/17 at 15:45; Stop 05/27/17 at 15:46; Status DC Fentanyl Citrate (Fentanyl 5ml Vial) 250 mcg 1X ONCE IV Last administered on 15:54; Start 05/27/17 at 15:45; Stop 05/27/17 at 15:46; Status DC Cefazolin Sodium 50 ml @ 100 mls/hr 1X ONCE IV Last administered on 15:55; Start 05/27/17 at 15:45; Stop 05/27/17 at 16:14; Status DC Ketorolac Tromethamine (Toradol) 30 mg 1X PRN PRN IV MODERATE PAIN; Start 05/27 at 16:00; Stop 06/01/17 at 15:59 Ondansetron HCl (Zofran) 4 mg PRN Q8HRS PRN IV NAUSEA/VOMITING Last administered on 05/27/17 19:55; Start 05/27/17 at 19:45 Lidocaine (Lidoderm) 1 patch DAILY TD ; Start 05/28/17 at 10:00 Cyanocobalamin (Vitamin B-12) 1,000 mcg 1X STAT IM ; Start 05/28/17 at 09:46; Stop 05/28/17 at 09:51; Status DC Active Scripts Active Prednisone 10 Mg Tablet 10 Mg PO UD [place] 5-325 Tablet (Acetaminophen/Hydrocodone Bitart) 1 Each Tablet 1 Tab PO Q4- 6HRS Reported Ambien (Zolpidem Tartrate) 10 Mg Tablet 1 Tab PO QHS PRN at bedtime for sleep Advair 250-50 Diskus (Fluticasone/Salmeterol) 1 Each Disk.w.dev 2 Puff IH BID Proair Hfa Inhaler (Albuterol Sulfate) 8.5 Gm Hfa.aer.ad 1 Puff INH PRN Q6HRS PRN Vitals/I & O Vital Sign - Last 24 Hours 05/27/17 05/27/17 05/27/17 05/27/17 13:01 15:25 15:26 15:30 Pulse 84 84 84 Resp 16 12 12 Pulse Ox 96 94 95 O2 Delivery Room Air Room Air Nasal Cannula Nasal Cannula O2 Flow Rate 4.0 4.0 05/27/17 05/27/17 05/27/17 05/27/17 15:35 15:40 15:45 15:50 Pulse 84 84 84 84 Resp 12 12 12 12 Pulse Ox 95 95 95 95 O2 Delivery Nasal Cannula Nasal Cannula Nasal Cannula Nasal Cannula O2 Flow Rate 4.0 4.0 4.0 4.0 05/27/17 05/27/17 05/27/17 05/27/17 15:54 15:59 16:17 16:26 Temp 97.9 97.9 Pulse 82 86 79 Resp 12 12 18 B/P (MAP) 103/53 (70) 96/47 (63) Pulse Ox 94 95 95 94 O2 Delivery Room Air Nasal Cannula Room Air Room Air O2 Flow Rate 3.0 05/27/17 05/27/17 05/27/17 05/27/17 16:35 16:56 17:27 17:50 Pulse 72 86 B/P (MAP) 104/49 (67) 117/54 (75) Pulse Ox 96 96 O2 Delivery Room Air Room Air Room Air Room Air 05/27/17 05/27/17 05/27/17 05/27/17 17:57 18:52 19:00 19:15 Temp 99.7 99.7 Pulse 90 94 Resp 18 B/P (MAP) 127/58 (81) 100/61 (74) Pulse Ox 94 91 O2 Delivery Room Air Room Air Room Air Room Air 05/27/17 05/27/17 05/27/17 05/27/17 20:15 21:54 21:55 23:00 Temp 97.9 97.9 Pulse 84 Resp 18 18 18 B/P (MAP) 83/56 (65) Pulse Ox 92 O2 Delivery Room Air Room Air Room Air Room Air 05/28/17 05/28/17 05/28/17 05/28/17 00:09 02:04 02:50 03:00 Temp 97.8 97.8 Pulse 95 Resp 18 18 18 18 B/P (MAP) 96/60 (72) Pulse Ox 90 O2 Delivery Room Air Room Air Room Air 05/28/17 05/28/17 05/28/17 05/28/17 04:13 05:20 06:12 07:00 Temp 99.0 99.0 Pulse 88 Resp 18 18 18 18 B/P (MAP) 103/57 (72) Pulse Ox 97 O2 Delivery Room Air Room Air Room Air 05/28/17 05/28/17 05/28/17 05/28/17 07:45 07:48 08:36 08:38 Pulse Ox 97 O2 Delivery Room Air Room Air Room Air Room Air 05/28/17 05/28/17 09:58 11:00 Temp 98.7 98.7 Pulse 86 Resp 18 B/P (MAP) 100/42 (61) Pulse Ox 96 O2 Delivery Room Air Room Air Intake and Output 05/27/17 05/27/17 05/28/17 15:00 23:00 07:00 Intake Total 900 ml 600 ml Output Total 100 ml 300 ml Balance 800 ml 300 ml SHAN WHITE MD May 28, 2017 12:34
[2017-05-28] MEDS: LIDOCAINE (700MG/PATCH) PATCH. TD SCH (13:03)
[2017-05-28] MEDS: KETOROLAC 15 MG/ML VIAL. IV PRN (13:32)
[2017-05-28 15:03] VITALS: BP 100/58
[2017-05-28] MEDS ORDERED: ZOLPIDEM 5 MG TABLET. PO PRN (19:30)
[2017-05-28 19:35] VITALS: BP 101/51
[2017-05-28 23:05] VITALS: BP 102/56
[2017-05-29 03:25] VITALS: BP 113/70
[2017-05-29] MEDS: KETOROLAC 15 MG/ML VIAL. IV PRN ×2 (05:10→11:14)
[2017-05-29] MEDS: oxyCODONE/APAP 10/325 1 TAB TABLET PO PRN ×4 (05:10→20:16)
[2017-05-29 05:17] LABS: BASO % 0 % (0-3); EOS % 2 % (0-3); HEMOGLOBIN 8.5 g/dL (12.0-15.5); LYMPH % 27 % (24-48); MEAN CORPUSCULAR HEMOGLOBIN 30 pg (25-35); MEAN CORPUSCULAR HGB CONC 33 g/dL (31-37); MEAN CORPUSCULAR VOLUME 93 fL (79-100); MONO % 5 % (0-9); NEUT % 65 % (31-73); PLATELET COUNT 150 x10^3/uL (140-400); RED CELL DISTRIBUTION WIDTH 14.3 % (11.5-14.5); WHITE BLOOD COUNT 3.8 x10^3/uL (4.0-11.0)
[2017-05-29 05:43] LABS: CALCIUM 7.1 mg/dL (8.5-10.1); CREATININE 0.5 mg/dL (0.6-1.0); GFR 127.6; POTASSIUM 3.5 mmol/L (3.5-5.1)
[2017-05-29] MEDS: HEPARIN PF for SUB-Q USE 5,000 UNIT/0.5 ML VIAL. SQ SCH ×3 (06:27→22:06)
[2017-05-29 07:00] VITALS: BP 93/55
[2017-05-29] MEDS: BUDESONIDE 0.5 MG/2 ML NEBU. NEB SCH ×2 (07:12→19:15)
[2017-05-29] MEDS: predniSONE 10 MG TABLET PO SCH (08:57)
[2017-05-29] MEDS: LIDOCAINE (700MG/PATCH) PATCH. TD SCH ×2 (09:00→17:06)
[2017-05-29 11:00] VITALS: BP 116/69
--- NOTE | 2017-05-29 12:07 | RAD ---
Portable chest, 05/29/2017: History: Decreased lung sounds Comparison is made to a study from 01/11/2017. The heart size and pulmonary vascularity are normal. No pulmonary infiltrates are seen. There is slight blunting of the right lateral costophrenic angle and the left vertebrophrenic angle raising the possibility of a tiny amount of pleural fluid. IMPRESSION: 1. No pulmonary infiltrates. 2. Possible tiny pleural effusions. Follow-up PA and lateral chest radiographs are suggested for further evaluation, if clinically indicated.
--- NOTE | 2017-05-29 12:57 | PDOC ---
PROGRESS NOTES Chief Complaint Chief Complaint Acute pelvis pain, left Pelvic fracture Ortho consulted, back pain, Non weight bearing of left IR right sacroplasty 05/27 Asthma, crohns, seem stable Vit D deficient, vitb12 deficiency anemia, likely chronic plan: on dilaudid iv, percocet 10mg prn. will add lidocaine patch vitb12 q week cont PTOT anemia work up CXR neg, no sob [facility] History of Present Illness History of Present Illness pain better, severe pain, taking po percocet 10 and iv dilaudid very frequently vit D cont prednisone, bone weakness noted Ortho to follow outpatient PT and OT , may need rehab s/p sacralplasty 05/27 Hb 8.5 from , no active bleeding Vitals Vitals Vital Signs Date Time Temp Pulse Resp B/P (MAP) Pulse Ox O2 Delivery O2 Flow Rate FiO2 05/29/17 11:44 96 Room Air 05/29/17 11:14 3.0 05/29/17 11:00 98.6 89 16 116/69 (85) 98.6 Physical Exam General: Alert, Oriented X3, Cooperative, mild distress, Other (In and out of awareness, but able to listen and clearly convey history and symptoms.) Heart: Regular rate, Normal S1, Normal S2, No murmurs Lungs: Clear Abdomen: Normal bowel sounds, Soft, No tenderness, No hepatosplenomegaly, No masses Extremities: No cyanosis, Other (tenderness to palpation over lef tgroin, trochanteric bursa bilaterally and left gluteal muscles,and sacroiliac joint and bruised area right leg distal part.) Skin: No rashes, Other (small bruised area right leg.) Labs LABS Laboratory Tests Test 05/29/17 04:50 White Blood Count 3.8 x10^3/uL (4.0-11.0) Red Blood Count 2.80 x10^6/uL (3.50-5.40) Hemoglobin 8.5 g/dL (12.0-15.5) Hematocrit 26.0 % (36.0-47.0) Mean Corpuscular Volume 93 fL (79-100) Mean Corpuscular Hemoglobin 30 pg (25-35) Mean Corpuscular Hemoglobin Concent 33 g/dL (31-37) Red Cell Distribution Width 14.3 % (11.5-14.5) Platelet Count 150 x10^3/uL (140-400) Neutrophils (%) (Auto) 65 % (31-73) Lymphocytes (%) (Auto) 27 % (24-48) Monocytes (%) (Auto) 5 % (0-9) Eosinophils (%) (Auto) 2 % (0-3) Basophils (%) (Auto) 0 % (0-3) Neutrophils # (Auto) 2.5 x10^3uL (1.8-7.7) Lymphocytes # (Auto) 1.0 x10^3/uL (1.0-4.8) Monocytes # (Auto) 0.2 x10^3/uL (0.0-1.1) Eosinophils # (Auto) 0.1 x10^3/uL (0.0-0.7) Basophils # (Auto) 0.0 x10^3/uL (0.0-0.2) Sodium Level 144 mmol/L (136-145) Potassium Level 3.5 mmol/L (3.5-5.1) Chloride Level 110 mmol/L (98-107) Carbon Dioxide Level 27 mmol/L (21-32) Anion Gap 7 (6-14) Blood Urea Nitrogen 7 mg/dL (7-20) Creatinine 0.5 mg/dL (0.6-1.0) Estimated GFR (Cockcroft-Gault) 127.6 Glucose Level 86 mg/dL (70-99) Calcium Level 7.1 mg/dL (8.5-10.1) Review of Systems Review of Systems no fever, chills, sob or chest pain Comment Review of Relevant I have reviewed the following items gamal (where applicable) has been applied. Labs Laboratory Tests Test 05/29/17 04:50 White Blood Count 3.8 x10^3/uL (4.0-11.0) Red Blood Count 2.80 x10^6/uL (3.50-5.40) Hemoglobin 8.5 g/dL (12.0-15.5) Hematocrit 26.0 % (36.0-47.0) Mean Corpuscular Volume 93 fL (79-100) Mean Corpuscular Hemoglobin 30 pg (25-35) Mean Corpuscular Hemoglobin Concent 33 g/dL (31-37) Red Cell Distribution Width 14.3 % (11.5-14.5) Platelet Count 150 x10^3/uL (140-400) Neutrophils (%) (Auto) 65 % (31-73) Lymphocytes (%) (Auto) 27 % (24-48) Monocytes (%) (Auto) 5 % (0-9) Eosinophils (%) (Auto) 2 % (0-3) Basophils (%) (Auto) 0 % (0-3) Neutrophils # (Auto) 2.5 x10^3uL (1.8-7.7) Lymphocytes # (Auto) 1.0 x10^3/uL (1.0-4.8) Monocytes # (Auto) 0.2 x10^3/uL (0.0-1.1) Eosinophils # (Auto) 0.1 x10^3/uL (0.0-0.7) Basophils # (Auto) 0.0 x10^3/uL (0.0-0.2) Sodium Level 144 mmol/L (136-145) Potassium Level 3.5 mmol/L (3.5-5.1) Chloride Level 110 mmol/L (98-107) Carbon Dioxide Level 27 mmol/L (21-32) Anion Gap 7 (6-14) Blood Urea Nitrogen 7 mg/dL (7-20) Creatinine 0.5 mg/dL (0.6-1.0) Estimated GFR (Cockcroft-Gault) 127.6 Glucose Level 86 mg/dL (70-99) Calcium Level 7.1 mg/dL (8.5-10.1) Laboratory Tests Test 05/29/17 04:50 White Blood Count 3.8 x10^3/uL (4.0-11.0) Red Blood Count 2.80 x10^6/uL (3.50-5.40) Hemoglobin 8.5 g/dL (12.0-15.5) Hematocrit 26.0 % (36.0-47.0) Mean Corpuscular Volume 93 fL (79-100) Mean Corpuscular Hemoglobin 30 pg (25-35) Mean Corpuscular Hemoglobin Concent 33 g/dL (31-37) Red Cell Distribution Width 14.3 % (11.5-14.5) Platelet Count 150 x10^3/uL (140-400) Neutrophils (%) (Auto) 65 % (31-73) Lymphocytes (%) (Auto) 27 % (24-48) Monocytes (%) (Auto) 5 % (0-9) Eosinophils (%) (Auto) 2 % (0-3) Basophils (%) (Auto) 0 % (0-3) Neutrophils # (Auto) 2.5 x10^3uL (1.8-7.7) Lymphocytes # (Auto) 1.0 x10^3/uL (1.0-4.8) Monocytes # (Auto) 0.2 x10^3/uL (0.0-1.1) Eosinophils # (Auto) 0.1 x10^3/uL (0.0-0.7) Basophils # (Auto) 0.0 x10^3/uL (0.0-0.2) Sodium Level 144 mmol/L (136-145) Potassium Level 3.5 mmol/L (3.5-5.1) Chloride Level 110 mmol/L (98-107) Carbon Dioxide Level 27 mmol/L (21-32) Anion Gap 7 (6-14) Blood Urea Nitrogen 7 mg/dL (7-20) Creatinine 0.5 mg/dL (0.6-1.0) Estimated GFR (Cockcroft-Gault) 127.6 Glucose Level 86 mg/dL (70-99) Calcium Level 7.1 mg/dL (8.5-10.1) Medications Current Medications Morphine Sulfate 5 mg 1X ONCE IV Last administered on 05/25/17 22:48; Start 05/25/17 at 22:45; Stop 05/25/17 at 22:49; Status DC Ondansetron HCl (Zofran) 4 mg 1X ONCE IV Last administered on 05/25/17 22:49 ; Start 05/25/17 at 23:00; Stop 05/25/17 at 23:01; Status DC Morphine Sulfate 4 mg PRN Q15MIN PRN IV/SQ PAIN GREATER THAN 3/10 Last administered on 05/26/17 00:40; Start 05/25/17 at 23:00; Stop 05/26/17 at 08:53 ; Status DC Ondansetron HCl (Zofran) 4 mg STK-MED ONCE .ROUTE ; Start 05/25/17 at 22:39; Stop 05/25/17 at 22:40; Status DC Diphenhydramine HCl (Benadryl) 50 mg STK-MED ONCE .ROUTE ; Start 05/25/17 at 22: 39; Stop 05/25/17 at 22:40; Status DC Morphine Sulfate 10 mg STK-MED ONCE .ROUTE ; Start 05/25/17 at 22:40; Stop 05/25 at 22:41; Status DC Diphenhydramine HCl (Benadryl) 25 mg 1X ONCE IVP Last administered on 22:48; Start 05/25/17 at 22:45; Stop 05/25/17 at 22:49; Status DC Ondansetron HCl (Zofran) 4 mg PRN Q8HRS PRN IV NAUSEA/VOMITING Last administered on 05/26/17 10:34; Start 05/25/17 at 23:45; Stop 05/26/17 at 23:44 ; Status DC Morphine Sulfate 4 mg PRN Q2HR PRN IV PAIN Last administered on 05/26/17 02:39 ; Start 05/25/17 at 23:45; Stop 05/26/17 at 23:44; Status DC Acetaminophen (Tylenol) 650 mg PRN Q4HRS PRN PO FEVER Last administered on 05/26 01:51; Start 05/25/17 at 23:45; Stop 05/26/17 at 08:46; Status DC Diphenhydramine HCl (Benadryl) 25 mg PRN Q6HRS PRN PO ITCHING Last administered on 05/28/17 21:08; Start 05/26/17 at 01:30 Oxycodone/ Acetaminophen (Percocet 5/325) 1 tab PRN Q4HRS PRN PO PAIN Last administered on 05/26/17 01:51; Start 05/26/17 at 01:30; Stop 05/26/17 at 08:45 ; Status DC Potassium Chloride (KCl Oral Soln) 40 meq 1X ONCE PO Last administered on 05/26 02:38; Start 05/26/17 at 02:30; Stop 05/26/17 at 02:31; Status DC Sodium Chloride 1,000 ml @ 100 mls/hr Q10H IV Last administered on 05/28/17 08 :38; Start 05/26/17 at 04:30; Stop 05/28/17 at 09:48; Status DC Hydromorphone HCl (Dilaudid) 1 mg PRN Q2HRS PRN IV MODERATE TO SEVERE PAIN Last administered on 05/28/17 19:57; Start 05/26/17 at 04:30 Hydromorphone HCl (Dilaudid) 2 mg PRN Q2HR PRN IV PAIN Last administered on 15:02; Start 05/26/17 at 04:30; Stop 05/26/17 at 19:25; Status DC Diphenhydramine HCl (Benadryl) 25 mg PRN Q6HRS PRN IVP ITCHING Last administered on 05/26/17 09:01; Start 05/26/17 at 08:45 Oxycodone/ Acetaminophen (Percocet 10/325) 1 tab PRN Q4HRS PRN PO pain Last administered on 05/29/17 11:14; Start 05/26/17 at 08:45 Acetaminophen (Tylenol) 650 mg PRN Q8HRS PRN PO FEVER Last administered on 05/27 19:54; Start 05/26/17 at 09:00 Ketorolac Tromethamine (Toradol) 15 mg PRN Q6HRS PRN IV MILD TO MODERATE PAIN Last administered on 05/29/17 11:14; Start 05/26/17 at 08:45; Stop 05/31/17 at 08 :44 Budesonide (Pulmicort) 0.5 mg RTBID NEB Last administered on 05/29/17 07:12; Start 05/26/17 at 09:00 Albuterol Sulfate (Ventolin Neb Soln) 2.5 mg PRN Q4HRS PRN NEB SHORTNESS OF BREATH Last administered on 05/26/17 11:17; Start 05/26/17 at 09:00 Prednisone (Prednisone) 10 mg DAILY PO Last administered on 05/29/17 08:57; Start 05/26/17 at 09:00 Zolpidem Tartrate (Ambien) 5 mg PRN QHS PRN PO INSOMNIA, MAY REPEAT X1 Last administered on 05/28/17 22:18; Start 05/26/17 at 09:00 Heparin Sodium (Porcine) (Heparin Sq) 5,000 unit Q8HRS SQ Last administered on 05/29/17 06:27; Start 05/26/17 at 14:00 Senna/Docusate Sodium (Senna Plus) 2 tab PRN QHS PRN PO CONSTIPATION Last administered on 05/26/17 22:27; Start 05/26/17 at 11:30 Ergocalciferol (Vitamin D2) 50,000 unit WEEKLY PO ; Start 05/27/17 at 11:15; Stop 05/27/17 at 12:43; Status DC Potassium Chloride (Klor-Con) 40 meq 1X ONCE PO Last administered on 11:17; Start 05/27/17 at 11:15; Stop 05/27/17 at 11:16; Status DC Ergocalciferol (Vitamin D2) 50,000 unit WEEKLY PO Last administered on 17:46; Start 05/27/17 at 17:00 Lidocaine/Sodium Bicarbonate (Buffered Lidocaine 1%) 20 ml STK-MED ONCE IJ ; Start 05/27/17 at 14:47; Stop 05/27/17 at 14:48; Status DC Midazolam HCl (Versed) 5 mg STK-MED ONCE .ROUTE ; Start 05/27/17 at 15:14; Stop 05/27/17 at 15:15; Status DC Fentanyl Citrate (Fentanyl 5ml Vial) 250 mcg STK-MED ONCE .ROUTE ; Start at 15:15; Stop 05/27/17 at 15:16; Status DC Cefazolin Sodium 50 ml @ As Directed STK-MED ONCE IV ; Start 05/27/17 at 15:15; Stop 05/27/17 at 15:16; Status DC Naloxone HCl (Narcan) 0.4 mg STK-MED ONCE .ROUTE ; Start 05/27/17 at 15:16; Stop 05/27/17 at 15:17; Status DC Flumazenil (Romazicon) 0.5 mg STK-MED ONCE IV ; Start 05/27/17 at 15:16; Stop at 15:17; Status DC Lidocaine/Sodium Bicarbonate (Buffered Lidocaine 1%) 20 ml 1X ONCE IJ Last administered on 05/27/17 15:53; Start 05/27/17 at 15:45; Stop 05/27/17 at 15:46 ; Status DC Midazolam HCl (Versed) 5 mg 1X ONCE IV Last administered on 05/27/17 15:53; Start 05/27/17 at 15:45; Stop 05/27/17 at 15:46; Status DC Fentanyl Citrate (Fentanyl 5ml Vial) 250 mcg 1X ONCE IV Last administered on 15:54; Start 05/27/17 at 15:45; Stop 05/27/17 at 15:46; Status DC Cefazolin Sodium 50 ml @ 100 mls/hr 1X ONCE IV Last administered on 15:55; Start 05/27/17 at 15:45; Stop 05/27/17 at 16:14; Status DC Ketorolac Tromethamine (Toradol) 30 mg 1X PRN PRN IV MODERATE PAIN; Start 05/27 at 16:00; Stop 05/28/17 at 14:25; Status DC Ondansetron HCl (Zofran) 4 mg PRN Q8HRS PRN IV NAUSEA/VOMITING Last administered on 05/27/17 19:55; Start 05/27/17 at 19:45 Lidocaine (Lidoderm) 1 patch DAILY TD Last administered on 05/28/17 13:03; Start 05/28/17 at 10:00; Stop 05/29/17 at 18:00 Cyanocobalamin (Vitamin B-12) 1,000 mcg 1X STAT IM Last administered on 13:03; Start 05/28/17 at 09:46; Stop 05/28/17 at 09:51; Status DC Zolpidem Tartrate (Ambien) 5 mg PRN QHS PRN PO INSOMNIA; Start 05/28/17 at 19:30 Lidocaine (Lidoderm) 1 patch DAILY@1800 TD ; Start 05/29/17 at 18:00 Active Scripts Active Prednisone 10 Mg Tablet 10 Mg PO UD [place] 5-325 Tablet (Acetaminophen/Hydrocodone Bitart) 1 Each Tablet 1 Tab PO Q4- 6HRS Reported Ambien (Zolpidem Tartrate) 10 Mg Tablet 1 Tab PO QHS PRN at bedtime for sleep Advair 250-50 Diskus (Fluticasone/Salmeterol) 1 Each Disk.w.dev 2 Puff IH BID Proair Hfa Inhaler (Albuterol Sulfate) 8.5 Gm Hfa.aer.ad 1 Puff INH PRN Q6HRS PRN Vitals/I & O Vital Sign - Last 24 Hours 05/28/17 05/28/17 05/28/17 05/28/17 13:26 15:03 15:13 18:17 Temp 98.7 98.7 Pulse 99 Resp 18 B/P (MAP) 100/58 (72) Pulse Ox 95 97 O2 Delivery Room Air Room Air Room Air Room Air 05/28/17 05/28/17 05/28/17 05/28/17 18:28 19:35 19:45 19:57 Temp 97.9 97.9 Pulse 84 Resp 16 18 B/P (MAP) 101/51 (68) Pulse Ox 98 97 O2 Delivery Room Air Room Air Room Air Room Air 05/28/17 05/28/17 05/29/17 05/29/17 20:30 23:05 03:25 05:10 Temp 97.9 97.5 97.9 97.5 Pulse 92 97 Resp 18 18 18 18 B/P (MAP) 102/56 (71) 113/70 (84) Pulse Ox 97 96 97 97 O2 Delivery Room Air Room Air Room Air Room Air 05/29/17 05/29/17 05/29/17 05/29/17 06:15 07:00 07:13 07:50 Temp 99.0 99.0 Pulse 80 Resp 18 16 B/P (MAP) 93/55 (68) Pulse Ox 97 94 95 O2 Delivery Room Air Room Air Room Air Room Air 05/29/17 05/29/17 05/29/17 11:00 11:14 11:44 Temp 98.6 98.6 Pulse 89 Resp 16 B/P (MAP) 116/69 (85) Pulse Ox 97 95 96 O2 Delivery Room Air Room Air Room Air O2 Flow Rate 3.0 Intake and Output 05/28/17 05/28/17 05/29/17 15:00 23:00 07:00 Intake Total 2354 ml 839 ml Output Total 3 ml Balance 2354 ml 836 ml SHAN WHITE MD May 29, 2017 12:57
[2017-05-29 15:00] VITALS: BP 115/57
[2017-05-29] MEDS: HYDROmorphone 2 MG/ML VIAL IV PRN ×2 (17:04→22:02)
[2017-05-29 17:09] LABS: NEG OBC FOB NEG; POS OBC FOB POS
[2017-05-29 19:00] VITALS: BP 116/59
[2017-05-29] MEDS: diphenhydrAMINE HCL 25 MG CAPSULE PO PRN (20:16)
[2017-05-29 23:00] VITALS: BP 124/68
[2017-05-30] MEDS: oxyCODONE/APAP 10/325 1 TAB TABLET PO PRN ×3 (02:42→13:45)
[2017-05-30 03:00] VITALS: BP 123/78
[2017-05-30] MEDS: HYDROmorphone 2 MG/ML VIAL IV PRN ×2 (04:48→16:16)
[2017-05-30] MEDS: HEPARIN PF for SUB-Q USE 5,000 UNIT/0.5 ML VIAL. SQ SCH ×2 (04:52→14:00)
[2017-05-30] MEDS: diphenhydrAMINE HCL 25 MG CAPSULE PO PRN ×2 (04:53→16:01)
[2017-05-30 07:00] VITALS: BP 128/71
[2017-05-30] MEDS: BUDESONIDE 0.5 MG/2 ML NEBU. NEB SCH (07:44)
[2017-05-30] MEDS: predniSONE 10 MG TABLET PO SCH (09:21)
[2017-05-30 09:45] LABS: ALBUMIN 2.9 g/dL (3.4-5.0); DIRECT BILIRUBIN 0.2 mg/dL (0.0-0.2); TOTAL BILIRUBIN 0.6 mg/dL (0.2-1.0); TOTAL PROTEIN 6.1 g/dL (6.4-8.2)
[2017-05-30 09:57] LABS: % SAT IRON 22 % (15-34); IRON,SERUM 48 ug/dL (50-170)
[2017-05-30 10:05] LABS: FOLATE 17.19 ng/ml (3.2-20.0)
[2017-05-30] MEDS: KETOROLAC 15 MG/ML VIAL. IV PRN (10:18)
--- NOTE | 2017-05-30 10:50 | PDOC ---
PROGRESS NOTES Subjective Subjective She admits continued pain. Objective Objective Vital Signs Date Time Temp Pulse Resp B/P (MAP) Pulse Ox O2 Delivery O2 Flow Rate FiO2 05/30/17 10:24 16 98 Room Air 05/30/17 07:00 97.5 72 128/71 (90) 97.5 05/29/17 11:14 3.0 Intake and Output 05/30/17 07:00 Intake Total 900 ml Balance 900 ml Intake Oral 900 ml # Voids 5 # Bowel Movements 1 Physical Exam Physical Exam She is sitting in bedside recliner and she did walk with physical therapy for 100' with roller walker and practised on stairs. Plan Plan of Care Agree with plans for transfer to SNF or rehab unit for short stay to work more on stairs. Comment Review of Relevant I have reviewed the following items gamal (where applicable) has been applied. Labs Laboratory Tests Test 05/29/17 04:50 05/29/17 15:02 05/30/17 08:20 White Blood Count 3.8 x10^3/uL (4.0-11.0) Red Blood Count 2.80 x10^6/uL (3.50-5.40) Hemoglobin 8.5 g/dL (12.0-15.5) Hematocrit 26.0 % (36.0-47.0) Mean Corpuscular Volume 93 fL (79-100) Mean Corpuscular Hemoglobin 30 pg (25-35) Mean Corpuscular Hemoglobin Concent 33 g/dL (31-37) Red Cell Distribution Width 14.3 % (11.5-14.5) Platelet Count 150 x10^3/uL (140-400) Neutrophils (%) (Auto) 65 % (31-73) Lymphocytes (%) (Auto) 27 % (24-48) Monocytes (%) (Auto) 5 % (0-9) Eosinophils (%) (Auto) 2 % (0-3) Basophils (%) (Auto) 0 % (0-3) Neutrophils # (Auto) 2.5 x10^3uL (1.8-7.7) Lymphocytes # (Auto) 1.0 x10^3/uL (1.0-4.8) Monocytes # (Auto) 0.2 x10^3/uL (0.0-1.1) Eosinophils # (Auto) 0.1 x10^3/uL (0.0-0.7) Basophils # (Auto) 0.0 x10^3/uL (0.0-0.2) Sodium Level 144 mmol/L (136-145) Potassium Level 3.5 mmol/L (3.5-5.1) Chloride Level 110 mmol/L (98-107) Carbon Dioxide Level 27 mmol/L (21-32) Anion Gap 7 (6-14) Blood Urea Nitrogen 7 mg/dL (7-20) Creatinine 0.5 mg/dL (0.6-1.0) Estimated GFR (Cockcroft-Gault) 127.6 Glucose Level 86 mg/dL (70-99) Calcium Level 7.1 mg/dL (8.5-10.1) Stool Occult Blood Negative (NEG) Iron Level 48 ug/dL (50-170) Total Iron Binding Capacity 223 ug/dL (250-450) Iron Saturation 22 % (15-34) Ferritin 123 ng/mL (8-252) Total Bilirubin 0.6 mg/dL (0.2-1.0) Direct Bilirubin 0.2 mg/dL (0.0-0.2) Aspartate Amino Transf (AST/SGOT) 20 U/L (15-37) Alanine Aminotransferase (ALT/SGPT) 24 U/L (14-59) Alkaline Phosphatase 141 U/L (46-116) Total Protein 6.1 g/dL (6.4-8.2) Albumin 2.9 g/dL (3.4-5.0) Laboratory Tests Test 05/29/17 15:02 05/30/17 08:20 Stool Occult Blood Negative (NEG) Iron Level 48 ug/dL (50-170) Total Iron Binding Capacity 223 ug/dL (250-450) Iron Saturation 22 % (15-34) Ferritin 123 ng/mL (8-252) Total Bilirubin 0.6 mg/dL (0.2-1.0) Direct Bilirubin 0.2 mg/dL (0.0-0.2) Aspartate Amino Transf (AST/SGOT) 20 U/L (15-37) Alanine Aminotransferase (ALT/SGPT) 24 U/L (14-59) Alkaline Phosphatase 141 U/L (46-116) Total Protein 6.1 g/dL (6.4-8.2) Albumin 2.9 g/dL (3.4-5.0) Medications Current Medications Morphine Sulfate 5 mg 1X ONCE IV Last administered on 05/25/17 22:48; Start 05/25/17 at 22:45; Stop 05/25/17 at 22:49; Status DC Ondansetron HCl (Zofran) 4 mg 1X ONCE IV Last administered on 05/25/17 22:49 ; Start 05/25/17 at 23:00; Stop 05/25/17 at 23:01; Status DC Morphine Sulfate 4 mg PRN Q15MIN PRN IV/SQ PAIN GREATER THAN 3/10 Last administered on 05/26/17 00:40; Start 05/25/17 at 23:00; Stop 05/26/17 at 08:53 ; Status DC Ondansetron HCl (Zofran) 4 mg STK-MED ONCE .ROUTE ; Start 05/25/17 at 22:39; Stop 05/25/17 at 22:40; Status DC Diphenhydramine HCl (Benadryl) 50 mg STK-MED ONCE .ROUTE ; Start 05/25/17 at 22: 39; Stop 05/25/17 at 22:40; Status DC Morphine Sulfate 10 mg STK-MED ONCE .ROUTE ; Start 05/25/17 at 22:40; Stop 05/25 at 22:41; Status DC Diphenhydramine HCl (Benadryl) 25 mg 1X ONCE IVP Last administered on 22:48; Start 05/25/17 at 22:45; Stop 05/25/17 at 22:49; Status DC Ondansetron HCl (Zofran) 4 mg PRN Q8HRS PRN IV NAUSEA/VOMITING Last administered on 05/26/17 10:34; Start 05/25/17 at 23:45; Stop 05/26/17 at 23:44 ; Status DC Morphine Sulfate 4 mg PRN Q2HR PRN IV PAIN Last administered on 05/26/17 02:39 ; Start 05/25/17 at 23:45; Stop 05/26/17 at 23:44; Status DC Acetaminophen (Tylenol) 650 mg PRN Q4HRS PRN PO FEVER Last administered on 05/26 01:51; Start 05/25/17 at 23:45; Stop 05/26/17 at 08:46; Status DC Diphenhydramine HCl (Benadryl) 25 mg PRN Q6HRS PRN PO ITCHING Last administered on 05/30/17 04:53; Start 05/26/17 at 01:30 Oxycodone/ Acetaminophen (Percocet 5/325) 1 tab PRN Q4HRS PRN PO PAIN Last administered on 05/26/17 01:51; Start 05/26/17 at 01:30; Stop 05/26/17 at 08:45 ; Status DC Potassium Chloride (KCl Oral Soln) 40 meq 1X ONCE PO Last administered on 05/26 02:38; Start 05/26/17 at 02:30; Stop 05/26/17 at 02:31; Status DC Sodium Chloride 1,000 ml @ 100 mls/hr Q10H IV Last administered on 05/28/17 08 :38; Start 05/26/17 at 04:30; Stop 05/28/17 at 09:48; Status DC Hydromorphone HCl (Dilaudid) 1 mg PRN Q2HRS PRN IV MODERATE TO SEVERE PAIN Last administered on 05/28/17 19:57; Start 05/26/17 at 04:30; Stop 05/29/17 at 14 :36; Status DC Hydromorphone HCl (Dilaudid) 2 mg PRN Q2HR PRN IV PAIN Last administered on 15:02; Start 05/26/17 at 04:30; Stop 05/26/17 at 19:25; Status DC Diphenhydramine HCl (Benadryl) 25 mg PRN Q6HRS PRN IVP ITCHING Last administered on 05/26/17 09:01; Start 05/26/17 at 08:45 Oxycodone/ Acetaminophen (Percocet 10/325) 1 tab PRN Q4HRS PRN PO pain Last administered on 05/30/17 09:22; Start 05/26/17 at 08:45 Acetaminophen (Tylenol) 650 mg PRN Q8HRS PRN PO FEVER Last administered on 05/27 19:54; Start 05/26/17 at 09:00 Ketorolac Tromethamine (Toradol) 15 mg PRN Q6HRS PRN IV MILD TO MODERATE PAIN Last administered on 05/30/17 10:18; Start 05/26/17 at 08:45; Stop 05/31/17 at 08 :44 Budesonide (Pulmicort) 0.5 mg RTBID NEB Last administered on 05/30/17 07:44; Start 05/26/17 at 09:00 Albuterol Sulfate (Ventolin Neb Soln) 2.5 mg PRN Q4HRS PRN NEB SHORTNESS OF BREATH Last administered on 05/26/17 11:17; Start 05/26/17 at 09:00 Prednisone (Prednisone) 10 mg DAILY PO Last administered on 05/30/17 09:21; Start 05/26/17 at 09:00 Zolpidem Tartrate (Ambien) 5 mg PRN QHS PRN PO INSOMNIA, MAY REPEAT X1 Last administered on 05/28/17 22:18; Start 05/26/17 at 09:00; Stop 05/29/17 at 14:19; Status DC Heparin Sodium (Porcine) (Heparin Sq) 5,000 unit Q8HRS SQ Last administered on 05/30/17 04:52; Start 05/26/17 at 14:00 Senna/Docusate Sodium (Senna Plus) 2 tab PRN QHS PRN PO CONSTIPATION Last administered on 05/26/17 22:27; Start 05/26/17 at 11:30 Ergocalciferol (Vitamin D2) 50,000 unit WEEKLY PO ; Start 05/27/17 at 11:15; Stop 05/27/17 at 12:43; Status DC Potassium Chloride (Klor-Con) 40 meq 1X ONCE PO Last administered on 11:17; Start 05/27/17 at 11:15; Stop 05/27/17 at 11:16; Status DC Ergocalciferol (Vitamin D2) 50,000 unit WEEKLY PO Last administered on 17:46; Start 05/27/17 at 17:00 Lidocaine/Sodium Bicarbonate (Buffered Lidocaine 1%) 20 ml STK-MED ONCE IJ ; Start 05/27/17 at 14:47; Stop 05/27/17 at 14:48; Status DC Midazolam HCl (Versed) 5 mg STK-MED ONCE .ROUTE ; Start 05/27/17 at 15:14; Stop 05/27/17 at 15:15; Status DC Fentanyl Citrate (Fentanyl 5ml Vial) 250 mcg STK-MED ONCE .ROUTE ; Start at 15:15; Stop 05/27/17 at 15:16; Status DC Cefazolin Sodium 50 ml @ As Directed STK-MED ONCE IV ; Start 05/27/17 at 15:15; Stop 05/27/17 at 15:16; Status DC Naloxone HCl (Narcan) 0.4 mg STK-MED ONCE .ROUTE ; Start 05/27/17 at 15:16; Stop 05/27/17 at 15:17; Status DC Flumazenil (Romazicon) 0.5 mg STK-MED ONCE IV ; Start 05/27/17 at 15:16; Stop at 15:17; Status DC Lidocaine/Sodium Bicarbonate (Buffered Lidocaine 1%) 20 ml 1X ONCE IJ Last administered on 05/27/17 15:53; Start 05/27/17 at 15:45; Stop 05/27/17 at 15:46 ; Status DC Midazolam HCl (Versed) 5 mg 1X ONCE IV Last administered on 05/27/17 15:53; Start 05/27/17 at 15:45; Stop 05/27/17 at 15:46; Status DC Fentanyl Citrate (Fentanyl 5ml Vial) 250 mcg 1X ONCE IV Last administered on 15:54; Start 05/27/17 at 15:45; Stop 05/27/17 at 15:46; Status DC Cefazolin Sodium 50 ml @ 100 mls/hr 1X ONCE IV Last administered on 15:55; Start 05/27/17 at 15:45; Stop 05/27/17 at 16:14; Status DC Ketorolac Tromethamine (Toradol) 30 mg 1X PRN PRN IV MODERATE PAIN; Start 05/27 at 16:00; Stop 05/28/17 at 14:25; Status DC Ondansetron HCl (Zofran) 4 mg PRN Q8HRS PRN IV NAUSEA/VOMITING Last administered on 05/27/17 19:55; Start 05/27/17 at 19:45 Lidocaine (Lidoderm) 1 patch DAILY TD Last administered on 05/28/17 13:03; Start 05/28/17 at 10:00; Stop 05/29/17 at 13:38; Status DC Cyanocobalamin (Vitamin B-12) 1,000 mcg 1X STAT IM Last administered on 13:03; Start 05/28/17 at 09:46; Stop 05/28/17 at 09:51; Status DC Zolpidem Tartrate (Ambien) 5 mg PRN QHS PRN PO INSOMNIA Last administered on 22:01; Start 05/28/17 at 19:30 Lidocaine (Lidoderm) 1 patch DAILY@1800 TD Last administered on 05/29/17 17:06 ; Start 05/29/17 at 18:00 Hydromorphone HCl (Dilaudid) 1 mg PRN Q4HRS PRN IV MODERATE TO SEVERE PAIN Last administered on 05/30/17 04:48; Start 05/29/17 at 04:30 Active Scripts Active Prednisone 10 Mg Tablet 10 Mg PO UD [place] 5-325 Tablet (Acetaminophen/Hydrocodone Bitart) 1 Each Tablet 1 Tab PO Q4- 6HRS Reported Ambien (Zolpidem Tartrate) 10 Mg Tablet 1 Tab PO QHS PRN at bedtime for sleep Advair 250-50 Diskus (Fluticasone/Salmeterol) 1 Each Disk.w.dev 2 Puff IH BID Proair Hfa Inhaler (Albuterol Sulfate) 8.5 Gm Hfa.aer.ad 1 Puff INH PRN Q6HRS PRN Vitals/I & O Vital Sign - Last 24 Hours 05/29/17 05/29/17 05/29/17 05/29/17 11:00 11:14 11:44 14:52 Temp 98.6 98.6 Pulse 89 Resp 16 B/P (MAP) 116/69 (85) Pulse Ox 97 95 96 O2 Delivery Room Air Room Air Room Air Room Air O2 Flow Rate 3.0 05/29/17 05/29/17 05/29/17 05/29/17 15:00 17:04 19:00 19:16 Temp 97.9 97.7 97.9 97.7 Pulse 84 80 Resp 16 18 B/P (MAP) 115/57 (76) 116/59 (78) Pulse Ox 97 96 97 O2 Delivery Room Air Room Air Room Air Room Air 05/29/17 05/29/17 05/29/17 05/29/17 20:15 20:16 22:02 23:00 Temp 98.8 98.8 Pulse 91 Resp 20 20 18 B/P (MAP) 124/68 (86) Pulse Ox 97 O2 Delivery Room Air Room Air Room Air Room Air 05/30/17 05/30/17 05/30/17 05/30/17 02:42 03:00 04:48 05:18 Temp 97.7 97.7 Pulse 95 Resp 20 18 20 20 B/P (MAP) 123/78 (93) Pulse Ox 97 O2 Delivery Room Air Room Air Room Air Room Air 05/30/17 05/30/17 05/30/17 05/30/17 07:00 07:45 09:22 10:24 Temp 97.5 97.5 Pulse 72 Resp 18 18 16 B/P (MAP) 128/71 (90) Pulse Ox 97 97 96 98 O2 Delivery Room Air Room Air Room Air Room Air Intake and Output 05/29/17 05/29/17 05/30/17 15:00 23:00 07:00 Intake Total 900 ml Balance 900 ml MITUL GARCIA MD May 30, 2017 10:50
[2017-05-30 11:10] VITALS: BP 99/60
--- NOTE | 2017-05-30 12:20 | PDOC3 ---
Discharge Summary Visit Information Date of Admission: May 25, 2017 Date of Discharge: May 30, 2017 Admitting Diagnosis Comment: Acute pelvis pain, left Pelvic fracture Ortho consulted, back pain, Non weight bearing of left IR right sacroplasty 05/27 Asthma, crohns, seem stable Vit D deficient, vitb12 deficiency anemia, likely chronic Brief Hospital Course Allergies Allergies Coded Allergies Type Severity Reaction Last Updated Verified butorphanol Allergy Severe anaphalaxis 11/13/16 Yes meperidine Allergy Intermediate rash 11/13/16 Yes propoxyphene Allergy Intermediate hives 11/13/16 Yes aspirin Allergy Unknown rash 11/13/16 Yes Vital Signs Vital Signs Date Time Temp Pulse Resp B/P (MAP) Pulse Ox O2 Delivery O2 Flow Rate FiO2 05/30/17 11:10 98.1 86 20 99/60 (73) 93 Room Air 98.1 05/29/17 11:14 3.0 Lab Results Laboratory Tests Test 05/29/17 04:50 05/29/17 15:02 05/30/17 08:20 White Blood Count 3.8 x10^3/uL (4.0-11.0) Red Blood Count 2.80 x10^6/uL (3.50-5.40) Hemoglobin 8.5 g/dL (12.0-15.5) Hematocrit 26.0 % (36.0-47.0) Mean Corpuscular Volume 93 fL (79-100) Mean Corpuscular Hemoglobin 30 pg (25-35) Mean Corpuscular Hemoglobin Concent 33 g/dL (31-37) Red Cell Distribution Width 14.3 % (11.5-14.5) Platelet Count 150 x10^3/uL (140-400) Neutrophils (%) (Auto) 65 % (31-73) Lymphocytes (%) (Auto) 27 % (24-48) Monocytes (%) (Auto) 5 % (0-9) Eosinophils (%) (Auto) 2 % (0-3) Basophils (%) (Auto) 0 % (0-3) Neutrophils # (Auto) 2.5 x10^3uL (1.8-7.7) Lymphocytes # (Auto) 1.0 x10^3/uL (1.0-4.8) Monocytes # (Auto) 0.2 x10^3/uL (0.0-1.1) Eosinophils # (Auto) 0.1 x10^3/uL (0.0-0.7) Basophils # (Auto) 0.0 x10^3/uL (0.0-0.2) Sodium Level 144 mmol/L (136-145) Potassium Level 3.5 mmol/L (3.5-5.1) Chloride Level 110 mmol/L (98-107) Carbon Dioxide Level 27 mmol/L (21-32) Anion Gap 7 (6-14) Blood Urea Nitrogen 7 mg/dL (7-20) Creatinine 0.5 mg/dL (0.6-1.0) Estimated GFR (Cockcroft-Gault) 127.6 Glucose Level 86 mg/dL (70-99) Calcium Level 7.1 mg/dL (8.5-10.1) Stool Occult Blood Negative (NEG) Iron Level 48 ug/dL (50-170) Total Iron Binding Capacity 223 ug/dL (250-450) Iron Saturation 22 % (15-34) Ferritin 123 ng/mL (8-252) Total Bilirubin 0.6 mg/dL (0.2-1.0) Direct Bilirubin 0.2 mg/dL (0.0-0.2) Aspartate Amino Transf (AST/SGOT) 20 U/L (15-37) Alanine Aminotransferase (ALT/SGPT) 24 U/L (14-59) Alkaline Phosphatase 141 U/L (46-116) Total Protein 6.1 g/dL (6.4-8.2) Albumin 2.9 g/dL (3.4-5.0) Vitamin B12 Level 430 pg/mL (247-911) Serum Folate 17.19 ng/ml (3.2-20.0) Laboratory Tests Test 05/29/17 15:02 05/30/17 08:20 Stool Occult Blood Negative (NEG) Iron Level 48 ug/dL (50-170) Total Iron Binding Capacity 223 ug/dL (250-450) Iron Saturation 22 % (15-34) Ferritin 123 ng/mL (8-252) Total Bilirubin 0.6 mg/dL (0.2-1.0) Direct Bilirubin 0.2 mg/dL (0.0-0.2) Aspartate Amino Transf (AST/SGOT) 20 U/L (15-37) Alanine Aminotransferase (ALT/SGPT) 24 U/L (14-59) Alkaline Phosphatase 141 U/L (46-116) Total Protein 6.1 g/dL (6.4-8.2) Albumin 2.9 g/dL (3.4-5.0) Vitamin B12 Level 430 pg/mL (247-911) Serum Folate 17.19 ng/ml (3.2-20.0) Brief Hospital Course Ms. Hurtado is a 57 old [sex] who presented with [ ]pelvic fx, underwent sx, tolerated well. BUt upon my day of dc (first time seeing her),she complains of RLQ pain, hx appy, hx crohns, chronic anemia with BEBA indices upon my review, I am inclined to c heck ESR and CT abd pelvis with contrast before her leaving.TOlerated diet though. LOts of issues,was disappointed with pain meds not on time, HCR screened - she did not request for that place etc, [place] [employer] Long time in room, [address] abd pelvis unimpressive, dc today if insurance approves HCR [place] so Discharge Information Condition at Discharge: Improved, Stable Disposition/Orders: Other (HCR) Scheduled Fluticasone/Salmeterol (Advair 250-50 Diskus), 2 PUFF IH BID, (Reported) Hydrocodone/Apap 5-325 ([place] 5-325 Tablet), 1 TAB PO Q4-6HRS Prednisone (Prednisone), 10 MG PO UD Scheduled PRN Albuterol Sulfate (Proair Hfa Inhaler), 1 PUFF INH PRN Q6HRS PRN for SHORTNESS OF BREATH, (Reported) Zolpidem Tartrate (Ambien), 1 TAB PO QHS PRN for ANXIETY, (Reported) ELVER PATRICIA MD May 30, 2017 12:20
[2017-05-30] MEDS ORDERED: IOHEXOL 300 MG/ML 75 ML VIAL IV ONE (12:45)
[2017-05-30] MEDS ORDERED: CONTRAST GIVEN MC PRN ×2 (12:45→13:45)
[2017-05-30] MEDS ORDERED: IOHEXOL 240 MG/ML 50ML VIAL. PO ONE (13:45)
[2017-05-30 14:43] VITALS: BP 120/75
[2017-05-30] MEDS: LIDOCAINE (700MG/PATCH) PATCH. TD SCH (16:39)
== END 2017-05-30 16:40 | DRG 536 ==
LOC: ER 22:16 → 4 NORTH 23:34
PROVIDERS: ADMIT Internal Medicine Hematology & Oncology; ATTEND Internal Medicine Hematology & Oncology
DX: S32.9XXA Fracture of unspecified parts of lumbosacral spine and pelvis, initial encounter for closed fracture (principal); K50.90 Crohn's disease, unspecified, without complications; S32.10XA Unspecified fracture of sacrum, initial encounter for closed fracture; E55.9 Vitamin D deficiency, unspecified; S32.512A Fracture of superior rim of left pubis, initial encounter for closed fracture; F41.9 Anxiety disorder, unspecified; G62.9 Polyneuropathy, unspecified; J45.909 Unspecified asthma, uncomplicated; M06.9 Rheumatoid arthritis, unspecified; M81.0 Age-related osteoporosis without current pathological fracture; W01.0XXA Fall on same level from slipping, tripping and stumbling without subsequent striking against object, initial encounter; Z82.49 Family history of ischemic heart disease and other diseases of the circulatory system; Z90.49 Acquired absence of other specified parts of digestive tract; M19.90 Unspecified osteoarthritis, unspecified site; Z90.710 Acquired absence of both cervix and uterus; Z90.89 Acquired absence of other organs; Z88.8 Allergy status to other drugs, medicaments and biological substances; M85.80 Other specified disorders of bone density and structure, unspecified site
CPT/HCPCS: 22511; 36415; 71010; 72148; 72192; 73502; 73521; 80048; 80076; 82274; 82306; 82607; 82728; 82746; 83540; 83550; 85027; 85610; 85651; 93005; 94250; 94640; 94760; 96374; 96375; 99152; 99153; C1725; C1892; J0690; J1170; J1200; J1885; J2250; J2270; J2405; J3010; J3420; J7030; J7512; Q0163; 97110; 97116; 97530; 97535; 99285-25